=== PATIENT | male | born 1935 | race Caucasian/White ===

== ENCOUNTER 2016-06-22 16:31 | Observation (INO) ==
--- NOTE | 2016-06-22 22:11 | Internal Med History&Physical ---
Date of Encounter: 06/23/16 Time of Encounter: 21:30 Internal Medicine - H&P: HPI Chief complaint: "I do not know why I am here" -he was transferred from [facility] Admitted From: Intrahospital Transfer Plans for Post Hospital Care: Transfer Inp Rehab Fac History of present illness: Mr. 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 The patient is a very poor historian. I gathered from his that he was transfused with 2 unit of blood yesterday at [facility]. She tells me he had required chronic transfusion the past couple of months, his hemoglobin was as low as 3.9 g/dl at some point. The patient reports that he is lethargic and somewhat SOB. he has had chronic pedal edema for which he wears LULU wrappings. He has CKD IIIB-IV under care of Dr Hernandez in [facility]. His pedal edema is partly due to congestive heart failure and chronic venous insufficiency, there is evidence of chronic stasis dermatitis. Last 2D occur was done withhin the past 3 months, LVEF was documented as 60%. The patient also developed redness on the dorsum of left hand, he denies trauma, fever, chills. He reports the hand is pain full A review of his records show that work-up for his pancytopenia in January 2014, during hospitalization for cholecystectomy was unremarkable. It appears that despite the fluctuating course of anemia amd leucopenia, his thromocytopenia has been persistent. He has required transfusion and Neupogen to help anemia and leucopenia. A summary of work-up for pancytopenia is detailed in summary authored by Dr Claire: See below: "Hematinic panel-normal folate level, borderline low B12 level but elevated methylmalonic and is now on oral B-12 supplementation after excluding pernicious anemia. 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 Protein electrophoresis was negative for monoclonal paraprotein. Liver/spleen ultrasound revealed a 13 cm splenomegaly. Liver was unremarkable. Bone marrow biopsy 07/21/14 showed a small population of monoclonal B cells with features typical for a low grade lymphoma. Abdomen CT 11/02/15 to evaluate unexplained right sided back pain complaint was negative for acute abnormality to explain his pain symptoms. New, 1.3cm left lower lobe pulmonary nodule. Malignancy considered less likely. 6 cm right renal cyst. Mild splenomegaly-13cm. Mildly enlarged right external iliac,abdominal, pelvic and inguinal LAD stable Abdomen/pelvis CT 06/05/16 during recent hospitalization was negative for organomegaly or lymphadenopathy to suggest progression of his underlying lymphoproliferative disorder. Pancytopenia was previously attributed to previous bendamustine therapy. "EGD colonoscopy 05/28/16 was unremarkable for active bleeding source. Capsule enteroscopy 06/12/16 was also unremarkable for active bleeding source" Dr Claire recommends daily Neupogen for profound neutropenia. 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 Completed 3 cycles of Rituxan plus bendamustine from 10/30-01/03/16. Treatment was stopped due to significant treatment-related fatigue and prolonged cytopenia despite significant dose adjustments. He started Rituxan maintenance every 2 months 2 years on 04/17/16. 2. 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 We had to dose reduce IVIG and administered every 2 months to accommodate underlying significant kidney dysfunction. 3. 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 I will confirm code status with his and [facility]. Medical history: arthritis, atrial fibrillation, cancer, cardiomyopathy, CHF, coronary artery disease, diabetes, GERD, hyperlipidemia, hypertension, malignancy, osteoporosis, peripheral artery disease, CKDIIIB-IV, bilateral hydrocoele, peripheral neuropathy, gout, DM2, no-melanotic skin cancer, carotid artery stenosis Psychiatric history: no psych history Surgical History: arthroscopy, cancer surgery, right cataract removal, cholecystectomy, coronary bypass (CABG X 4), left and right knee replacement, left shouldr arthroscopy, rotator cuff repiar, excision of non-melanotic skin cancer Smoking Status: Unknown if ever smoked Smokeless Tobacco Status: No Alcohol use: none Drug use: none Family History:mother-DM2, CHF VS: 98.2F, 80, 102/85, 93% on 2L/min by nasal cannula O/E: Not in distress, pale+, anicteric, afebrile,acyanotic, HEENT: Trachea is central, no cervical or jugular lymphadenopathy Chest: CTAB. 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 Psychaitry: Mood is good, affect is congruent, speech is normal, thought process is logical and goal-directed. Extremities: Wrapped in LULU, I did not unwrap to directly observe it SKIN: Erythema of the dorsum of the left hand, no differential warmth, no fluctuancy, no skin breach over lesion, no cubital or axillary lymphadenopathy on the left. LABS 06/21/16 Range/Units 05:20 WBC 2.4 L (4.3-11.1) K/mcL Hgb 6.9 L (12.9-16.9) g/dL Hct 20.9 L (37.5-50.1) % Plt Count 12 L* (140-400) K/mcL Neutrophils # 0.5 L (1.6-8.9) K/mcL BUN=82, SCr=4.2, serum magnesium=2.2, phosphorus=4.6. Chest X-Ray 06/21/16 06:00 Chronic right pleural effusion and/or pleural thickening, No infiltrates. IMP Acute renal failure on CKD, related to diuretics and ACEI Intravascular volume depletion despite extravascular volume expansion. related to diuretics. There is no pulmonary vascular congestion and right pleural effusion even appears loculated. His pedal edema is partly due to chronic venous insufficiency, use of Amlodipine. Chronic pancytopenia with transfusion and Nuepogen-dependent. 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 Hold Lisinopril and Furosemide Discontinue Amlodipine as it may be worsening his pedal edema Trend CBC, transfuse as required Consult nephrology and palliative care Continue other essential medications of chronic morbidities Low dose insulin slding scale QAC/HS Chemical anticoagulation contraindicated giving probable GI losses, anemia and thrombocytopenia Patient is the ideal candidate for palliative considering multiple organ insults. I discussed my assessment with the patient, he verbalized understanding and is agreeable to admission. Past Med Surg Social Fam HX - Past Medical History Medical history: arthritis, atrial fibrillation, cancer, cardiomyopathy, CHF, coronary artery disease, diabetes, GERD, hyperlipidemia, hypertension, malignancy, osteoporosis, peripheral artery disease, renal disease, other Psychiatric history: no psych history - Past Surgical History Surgical History: arthroscopy, cancer surgery, cataract, cholecystectomy, coronary bypass (CABG), knee replacement, orthopedic, other, other - Social History Smoking Status: Unknown if ever smoked Smokeless Tobacco Status: No Alcohol use: none Drug use: none Internal Medicine - H&P: Meds Amlodipine Besylate [Norvasc] 10 mg PO DAILY 01/13/15 [History] Aspirin 81 mg PO DAILY 01/13/15 [History] Atenolol [Tenormin] 50 mg PO BID 01/13/15 [History] Cholecalciferol (D-3) 2,000 units PO DAILY 01/13/15 [History] Febuxostat [Uloric] 80 mg PO DAILY 01/13/15 [History] GlipiZIDE [Glucotrol] 5 mg PO BID 01/13/15 [History] Lisinopril [Zestril] 20 mg PO DAILY 01/13/15 [History] Loratadine [Alavert] 10 mg PO DAILY 01/13/15 [History] Multivitamin [Multivitamins] 1 cap PO DAILY 01/13/15 [History] [place]-3 Fatty Acids [Fish Oil] 1,200 mg PO DAILY 01/13/15 [History] Rosuvastatin Calcium [Crestor] 10 mg PO DAILY 01/13/15 [History] Furosemide [Lasix] 20 mg PO DAILY #30 tablet 04/18/16 [Rx] Aminocaproic Acid [Amicar] 1,000 mg PO Q6H #120 tablet 06/15/16 [Rx] Levofloxacin 750 mg PO Q48H #7 tablet 06/15/16 [Rx] Omeprazole [PriLOSEC] 40 mg PO DAILY #30 cap 06/15/16 [Rx] Diclofenac Sodium [Voltaren] 1 appl TP QID PRN 06/22/16 [History] Allergies No Known Allergies Allergy (Verified 01/20/15 10:11) All Systems PM: A 10-system review of systems was performed and is negative for pertinent findings except as documented above in the HPI. Internal Med - H&P Results - Labs CBC & Chem 7: 06/23/16 05:45 06/23/16 05:45
[2016-06-22] MEDS ORDERED: Acetaminophen 325 MG TABLET PO PRN (22:13)
[2016-06-22] MEDS ORDERED: Naloxone 0.4 MG/ML INJ IVP PRN (22:13)
[2016-06-22] MEDS ORDERED: 0.9 % Sodium Chloride 1,000 ML IVC SCH (22:15)
[2016-06-22 23:27] LABS: Bilirubin,Urine Small (Negative); Blood,Urine Negative (Negative); Clarity,Urine Clear (Clear); Color,Urine Yellow (Yellow); Glucose,Urine (UA) Normal (Normal); Ketones,Urine Negative (Negative); Leukocyte Esterase,Urine Negative (Negative); Nitrite,Urine Negative (Negative); Protein,Urine Trace mg/dL (Neg-Trace); Urobilinogen,Urine Normal (Normal)
[2016-06-22 23:30] LABS: Bacteria,Urine None Seen per hpf (None-Few); Hyaline Casts,Urine Few per lpf (None-Few); RBC,Urine 0-3 per hpf (0-3); Squamous Epithelial Cell,Urine Many per lpf (None-Few); WBC,Urine 0-3 per hpf (0-3)
[2016-06-22 23:35] LABS: Magnesium 2.2 mg/dL (1.6-2.6); Phosphorous 4.6 mg/dL (2.3-4.7)
[2016-06-23] MEDS ORDERED: D5% in Water 1,000 ML IV PRN (04:37)
[2016-06-23] MEDS ORDERED: Dextrose Gel 15 GM PO PRN ×2 (04:37)
[2016-06-23] MEDS ORDERED: *HR* Dextrose 50 % in Water (Syg) 50 ML SYRINGE IVP PRN (04:37)
[2016-06-23] MEDS: 0.9 % Sodium Chloride 1,000 ML IVC SCH (06:12)
[2016-06-23 06:13] LABS: Red Cell Distribution Width 15.9 % (11.5-14.5)
[2016-06-23 06:14] LABS: Eosinophils % 0.5 %; Hematocrit 22.3 % (37.5-50.1); Hemoglobin 7.4 g/dL (12.9-16.9); Immature Granulocytes % 3.6 % (0-4); Lymphocytes # 0.4 K/mcL (0.6-4.6); Lymphocytes % 21.9 %; Mean Corpuscular HGB Conc 33.2 g/dL (31.6-35.5); Mean Corpuscular Hemoglobin 30.1 pg (28.0-33.3); Mean Corpuscular Volume 90.7 fL (83.0-100.0); Mean Platelet Volume 12.8 fL (9.4-12.4); Monocytes # 1.1 K/mcL (0.0-1.3); Monocytes % 59.4 %; Neutrophils # 0.3 K/mcL (1.6-8.9); Red Blood Count 2.46 M/mcL (4.19-5.50); Segmented Neutrophils % 14.6 %
[2016-06-23 06:20] LABS: Platelet Count 18 K/mcL (140-400)
[2016-06-23 06:21] LABS: Potassium 3.9 mEq/L (3.5-4.5)
[2016-06-23 06:22] LABS: Calcium 8.3 mg/dL (8.6-10.8)
[2016-06-23 06:44] LABS: Platelet Estimate Marked Decrease (Normal); Reactive Lymphocytes Present (Not Present)
[2016-06-23] MEDS: *HR* GlipiZIDE 5 MG TABLET PO SCH ×2 (08:47→18:07)
[2016-06-23] MEDS: Insulin LISPRO 300 UNITS/3 ML VIAL SQ SCH ×4 (08:48→20:58)
[2016-06-23] MEDS: Cholecalciferol (D-3) 1,000 UNIT TABLET PO SCH (08:51)
[2016-06-23] MEDS: Multivit/Ca/Min/Fe/FA 1 TAB TABLET PO SCH (08:52)
[2016-06-23] MEDS: Loratadine 10 MG TABLET PO SCH (08:52)
[2016-06-23] MEDS: Febuxostat [Uloric] 80 MG PO SCH (08:57)
[2016-06-23] MEDS ORDERED: Aspirin 81 MG TAB.CHEW PO SCH (09:00)
--- NOTE | 2016-06-23 11:08 | Nephrology Consult Note ---
Date of Encounter: 06/23/16 Time of Encounter: 10:00 Assessment and Plan (1) Acute renal failure superimposed on stage 3 chronic kidney disease Current Visit: Yes Status: Acute Non-oliguric JOSE on CKD stage IIIb. Hx of CKD stage IV (but with chemo and weight loss, his eGFR trended better over the last several months). Suspect multifactorial JOSE but largely pre-renal insult and hemodynamic by his severe anemia and diminished oral intake. Though he has chronic edema, he very likely has a reduced EABV with associated hypoalbuminemia. Continue gentle volume expansion. 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 Will assess daily. Follow a renal protective strategy: dose renally cleared Rx by GFR, avoid NSAIDs , Bactrim, Contrast and other nephrotoxins. Adequate water hydration but no more than 2L per day given his chronic edema. Low sodium and increased protein diet. Recommend Nepro shakes (low in phos, which is better in advanced stages of CKD). Thank you for consulting the [facility] group. Will follow with you. (2) Anasarca associated with disorder of kidney Current Visit: No Status: Acute The pt says that he chronically is edematous. I compared his recorded wt in Kgs dating back to Apr, in which he weighed about 10kg more. So the edema I see today may be more chronic in nature. (3) Gout Current Visit: No Status: Chronic Will trend uric acid, CK, Phos. Avoid NSAIDs, but if he were to develop an acute flare then prednisone would be least impacting on his renal function . 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 (5) Cellulitis of left hand Current Visit: Yes Status: Acute As per primary History of Present Illness - Reason for Consult Consult date: 06/23/16 Acute Kidney Injury, Chronic Kidney Disease Requesting physician: Jad Zaragoza - Chief Complaint JOSE on CKD - History of Present Illness Victoriano Calderon is a very pleasant gentleman with a pmh of CKD (previously stage IV , but trending toward stage III of late), lymphoma s/p chemo, chronic edema and et al who presented as a transfer from a regional rehab unit d/t JOSE on CKD. 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 No FHx of ESRD or renal transplant. He denies using NSAIDs and he does not think that he received Indomethacin for his gout over the last few weeks when he last had a flare. He affirmed having diminished appetite and reduced oral intake of liquids and solids. He did not affirm CP, dyspnea, flank pain, renal stones, dysuria, gross hematuria or renal stones in the past. Past Med Surg Social Fam HX - Past Medical History Medical history: arthritis, atrial fibrillation, cancer, cardiomyopathy, CHF, coronary artery disease, diabetes, GERD, hyperlipidemia, hypertension, malignancy, osteoporosis, peripheral artery disease, renal disease, other Psychiatric history: no psych history - Past Surgical History Surgical History: arthroscopy, cancer surgery, cataract, cholecystectomy, coronary bypass (CABG), knee replacement, orthopedic, other, other - Social History Smoking Status: Unknown if ever smoked Smokeless Tobacco Status: No Alcohol use: none Drug use: none Medications and Allergies Amlodipine Besylate [Norvasc] 10 mg PO DAILY 01/13/15 [History] Aspirin 81 mg PO DAILY 01/13/15 [History] Atenolol [Tenormin] 50 mg PO BID 01/13/15 [History] Cholecalciferol (D-3) 2,000 units PO DAILY 01/13/15 [History] Febuxostat [Uloric] 80 mg PO DAILY 01/13/15 [History] GlipiZIDE [Glucotrol] 5 mg PO BID 01/13/15 [History] Lisinopril [Zestril] 20 mg PO DAILY 01/13/15 [History] Loratadine [Alavert] 10 mg PO DAILY 01/13/15 [History] Multivitamin [Multivitamins] 1 cap PO DAILY 01/13/15 [History] [place]-3 Fatty Acids [Fish Oil] 1,200 mg PO DAILY 01/13/15 [History] Rosuvastatin Calcium [Crestor] 10 mg PO DAILY 01/13/15 [History] Furosemide [Lasix] 20 mg PO DAILY #30 tablet 04/18/16 [Rx] Aminocaproic Acid [Amicar] 1,000 mg PO Q6H #120 tablet 06/15/16 [Rx] Levofloxacin 750 mg PO Q48H #7 tablet 06/15/16 [Rx] Omeprazole [PriLOSEC] 40 mg PO DAILY #30 cap 06/15/16 [Rx] Diclofenac Sodium [Voltaren] 1 appl TP QID PRN 06/22/16 [History] Allergies No Known Allergies Allergy (Verified 01/20/15 10:11) Review of Systems All Systems: reviewed and no additional remarkable complaints except as stated Exam - Vital Signs Vital signs: Initial Vital Signs Temp Pulse Resp BP Pulse Ox 97.6 F 92 20 109/63 94 L 06/22/16 20:00 06/22/16 20:00 06/22/16 20:00 06/22/16 20:00 06/22/16 20:00 Vital Signs - Last 8 Hours Temp Pulse Resp BP Pulse Ox 06/23/16 08:00 97 06/23/16 07:17 99.3 F 94 18 102/73 97 06/23/16 04:13 96 18 114/70 97 Intake and Output 06/22/16 06/23/16 06/23/16 23:59 07:59 15:59 Intake Total 0 / 0 100 / 100 Output Total 175 / 175 200 / 200 Balance -175 / -175 -100 / -100 Intake: Oral 0 / 0 100 / 100 Output: Urine 175 / 175 200 / 200 Other: # Voids 0 0 Weight 109.2 kg Blood Glucose* 94 104 - General Appearance General appearance: well-developed, obese, chronically ill, frail EENT: ATNC, mucous membranes moist Neck: supple Respiratory: clear Cardiology: edema (1-2+ pretibial pitting edema), irregular rhythm, normal S1, normal S2 Gastrointestinal: normoactive bowel sounds, no tenderness, no guarding, obese Integumentary: warm and dry, chronic venous stasis Neurologic: no focal deficit, no asterixis, alert and oriented x3 Musculoskeletal: no deformities, no cyanosis Psychiatric: depressed, cooperative Results - Lab Results 06/24/16 04:03 06/24/16 04:03 Most recent lab results Calcium 8.3 mg/dL (8.6-10.8) L 06/23/16 05:45 Phosphorus 4.6 mg/dL (2.3-4.7) 06/22/16 22:50 Magnesium 2.2 mg/dL (1.6-2.6) 06/22/16 22:50 I reviewed the labs from both 06/23/16 and 06/24/16, imaging, meds, I/Os and vitals. I reviewed his prior hospitalization medical records: previously saw my colleague Dr. Mims in Apr with fluid overload and JOSE on CKD -- did not need HD at that time. Consult Discharge Plan - Plan Referrals: NO,PCP [Primary Care Provider] -
--- NOTE | 2016-06-23 11:14 | Internal Med Progress Note ---
<Samy Lara Eligio - Last Filed: 06/23/16 12:45> Date of Encounter: 06/23/16 Time of Encounter: 11:05 - Assessment and plan (1) Antineoplastic chemotherapy induced pancytopenia Current Visit: No Status: Chronic Assessment and plan: Pt. with hx of Marginal Zone Lymphoma Pancytopenia likely multifactorial from marginal zone lymphoma, recent chemotherapy, CKD. ANC: 300 Hgb: 7.4, low Hgb 3.9 on May. Plt: 18 WBC: 1.9 Has received multiple PRBC transfusions and Platelet transfusions. Currently mild temp of 99.3 EGD colonoscopy 05/28/16 was unremarkable for active bleeding source. Push enteroscopy 06/12/16 was also unremarkable for active bleeding source. 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 Will hydrate gently as he also has diastolic CFH (3) CHF NYHA class III (symptoms with mildly strenuous activities) Current Visit: No Status: Acute Assessment and plan: Last echo: 05/08/16 LVEF 60-65%, mild concentric left ventricular hypertrophy, indeterminate diastolic dysfunction due to Afib, severely dilated left atrium, moderately dilated right atrium, mild aortic regurg, mild pulm regurg, mild pulm htn, no wall motion abnormalities. Lungs have crackles in b/l bases B/L LE edema Qualifiers: Congestive heart failure type: diastolic Congestive heart failure chronicity: acute on chronic Qualified Code(s): I50.33 - Acute on chronic diastolic (congestive) heart failure (4) Atrial fibrillation Current Visit: No Status: Chronic Assessment and plan: Hx of Afib On Tenormin 50mg BID at home Rate controlled CHADSVASC score of 5 (Age, HTN, CHF, CAD). He is high stroke risk, however, he is pancytopenic--HGB 8.8, platelets 55. Unable to be safely anticoagulated. Pt is aware he is at increased stroke risk. Check echo to evaluate structure and function. Qualifiers: Atrial fibrillation type: paroxysmal Qualified Code(s): I48.0 - Paroxysmal atrial fibrillation (5) Cellulitis of left hand Current Visit: Yes Status: Acute Assessment and plan: Left hand/wrist swelling/erythema/tenderness UE Venous duplex on 06/20/16 revealed normal left upper extremity deep and superficial venous exam with normal contralateral vein. Will tho hand and start antibiotic - Subjective Interval history: Patient seen and examined. Hx of MALT with persistent pancytopenia transferred from [place] for worsening of renal function. Has new left hand erythema/ swelling/tenderness. Not eating much, but was able to have some ensure and a small amount of food today. Feeling less fatigues today. Denies cp/sob/n/v/d. - Constitutional Vitals: Temp Pulse Resp BP Pulse Ox 99.3 F 94 18 102/73 97 06/23/16 07:17 06/23/16 07:17 06/23/16 07:17 06/23/16 07:17 06/23/16 08:00 General appearance: Present: A&O X 3 - Head Head exam: Present: atraumatic, normocephalic - Eye Eye exam: Present: PERRL, conjuntiva pink, sclera anicteric Pupils: Present: PERRL - Neck Neck exam general surgery: Present: supple, trachea midline. Absent: lymphadenopathy - Respiratory Respiratory exam: Present: rales. Absent: accessory muscle use, CTAB, respiratory distress, rhonchi, wheezes - Cardiovascular Cardiovascular exam: Present: RRR, +S1, +S2. Absent: diastolic murmur, gallop, rubs, systolic murmur - GI/Abdominal GI/Abdominal exam: Present: normal bowel sounds, soft, no peritoneal signs. Absent: distended, tenderness - Extremities Exam Extremities exam: Present: pedal edema, tenderness, warm, radial pulses palpable and symetrical. Absent: calf tenderness, cyanotic - Neurological Exam Neurological exam: Present: CN II-XII intact, oriented X3, no focal deficits. Absent: facial droop, speech deficit - Skin Skin exam: Present: dry, intact Internal Medicine: Result - Labs CBC & Chem 7: 06/23/16 05:45 06/23/16 05:45 Labs: Short CBC 06/23/16 Range/Units 05:45 WBC 1.9 L (4.3-11.1) K/mcL Hgb 7.4 L (12.9-16.9) g/dL Hct 22.3 L (37.5-50.1) % Plt Count 18 L* (140-400) K/mcL Neutrophils # 0.3 L (1.6-8.9) K/mcL [facility] 06/23/16 05:45 Sodium 142 Potassium 3.9 Chloride 107 Carbon Dioxide 22 BUN 90 H Creatinine 3.80 H Glucose 97 Calcium 8.3 L Urine 06/22/16 Range/Units 23:00 Urine Color Yellow (Yellow) Urine Clarity Clear (Clear) Urine pH 5.0 (5.0-8.0) pH Units Ur Specific [place] 1.020 (1.010-1.025) Urine Protein Trace (Neg-Trace) mg/dL Urine Glucose (UA) Normal (Normal) mg/dL - VTE Reasons for not Prescribing Prophylaxis: Medical contraindication Consult Discharge Plan - Plan Referrals: NO,PCP [Primary Care Provider] - <Jad Zaraogza P - Last Filed: 06/23/16 16:58> Date of Encounter: 06/23/16 - Constitutional Vitals: Temp Pulse Resp BP Pulse Ox 98.2 F 76 16 104/54 93 L 06/23/16 16:34 06/23/16 16:34 06/23/16 16:34 06/23/16 16:34 06/23/16 16:34 Internal Medicine: Result - Labs CBC & Chem 7: 06/23/16 05:45 06/23/16 05:45 Labs: Short CBC 06/23/16 Range/Units 05:45 WBC 1.9 L (4.3-11.1) K/mcL Hgb 7.4 L (12.9-16.9) g/dL Hct 22.3 L (37.5-50.1) % Plt Count 18 L* (140-400) K/mcL Neutrophils # 0.3 L (1.6-8.9) K/[facility] 06/23/16 05:45 Sodium 142 Potassium 3.9 Chloride 107 Carbon Dioxide 22 BUN 90 H Creatinine 3.80 H Glucose 97 Calcium 8.3 L Urine 06/22/16 Range/Units 23:00 Urine Color Yellow (Yellow) Urine Clarity Clear (Clear) Urine pH 5.0 (5.0-8.0) pH Units Ur Specific [place] 1.020 (1.010-1.025) Urine Protein Trace (Neg-Trace) mg/dL Urine Glucose (UA) Normal (Normal) mg/dL - Attending Attestation I examined this patient and my medical decision-making was reviewed with the HIGHWAY CONSTRUCTION INSPECTOR/PA/Advanced Practice Nurse/Resident Physician. I agree with the documented findings, disposition and treatment plan as described except to the extent set forth below.
--- NOTE | 2016-06-23 16:25 | Palliative - Consult Note ---
Date of Encounter: 06/24/16 Time of Encounter: 16:22 - Assessment and Plan (1) Goals of care, counseling/discussion Current Visit: Yes Status: Acute Assessment and plan: Plan for family meeting with patient and his spouse when she is able (goal in the next 1-2 days). Discussed case with hospitalist. Code status established prior to consult. (2) Cellulitis of left hand Current Visit: Yes Status: Acute Assessment and plan: Erythematous area marked. on ATB therapy. Treatment per hospitalist. 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 Palliative-CN HPI - Data of Consult Patient: new to practice Consult date: 06/23/16 Requesting Physician: Jad Zaragoza MD Primary Care Provider: PCP NO - Consult Narrative Palliative Care/Comfort Measures: Palliative care Reason for consult: Goals of care History of present illness: Mr. Calderon is a 80 year old male transferred to [facility] from [place] for anemia. Mr. Calderon has been in and out of acute care settings since May 2016. 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 He has been evaluated in the hospital setting several times for his anemia. Endoscopic evaluation was unable to determine a source of bleeding. He was unable to complete a capsule endoscopy as this had to be completed as an outpatient. Mr. Calderon has had several blood transfusions over the past 2-3 weeks for his anemia. He was transferred to [facility] for further workup and review. He was also found to have an erythematous region on the dorsal aspect of the right hand. His spouse, Arik, reports a progressive decline over the past 2 years. Mr. Calderon becomes periodically confused, but she has been able to manage his care in the home setting. He does not have home health nurses at this time. Mr. Calderon has chronic lower extremity edema and stasis dermatitis. His appetite has dwindled, and he now drinks ensures. The patient denies pain, nausea, vomiting. His spouse reports poor functional capacity and exercise tolerance, along with frequent napping. The palliative care team was consulted to assist with goals of care planning in this chronically ill patient. CC: Jad Zaragoza MD Past Med Surg Social Fam HX - Past Medical History Source: patient, old records reviewed, obtained from family Medical history: arthritis, atrial fibrillation, cancer, cardiomyopathy, CHF, coronary artery disease, diabetes, GERD, hyperlipidemia, hypertension, malignancy, osteoporosis, peripheral artery disease, renal disease, other Psychiatric history: no psych history - Past Surgical History Surgical History: arthroscopy, cancer surgery, cataract, cholecystectomy, coronary bypass (CABG), knee replacement, orthopedic, other, other - Social History Smoking Status: Unknown if ever smoked Smokeless Tobacco Status: No Alcohol use: none Drug use: none Medications and Allergies Amlodipine Besylate [Norvasc] 10 mg PO DAILY 01/13/15 [History] Aspirin 81 mg PO DAILY 01/13/15 [History] Atenolol [Tenormin] 50 mg PO BID 01/13/15 [History] Cholecalciferol (D-3) 2,000 units PO DAILY 01/13/15 [History] Febuxostat [Uloric] 80 mg PO DAILY 01/13/15 [History] GlipiZIDE [Glucotrol] 5 mg PO BID 01/13/15 [History] Lisinopril [Zestril] 20 mg PO DAILY 01/13/15 [History] Loratadine [Alavert] 10 mg PO DAILY 01/13/15 [History] Multivitamin [Multivitamins] 1 cap PO DAILY 01/13/15 [History] [place]-3 Fatty Acids [Fish Oil] 1,200 mg PO DAILY 01/13/15 [History] Rosuvastatin Calcium [Crestor] 10 mg PO DAILY 01/13/15 [History] Furosemide [Lasix] 20 mg PO DAILY #30 tablet 04/18/16 [Rx] Aminocaproic Acid [Amicar] 1,000 mg PO Q6H #120 tablet 06/15/16 [Rx] Levofloxacin 750 mg PO Q48H #7 tablet 06/15/16 [Rx] Omeprazole [PriLOSEC] 40 mg PO DAILY #30 cap 06/15/16 [Rx] Diclofenac Sodium [Voltaren] 1 appl TP QID PRN 06/22/16 [History] Allergies No Known Allergies Allergy (Verified 01/20/15 10:11) - Constitutional Constitutional ROS PAL: decreased appetite - EENT Ears, nose, mouth, throat: no dysphagia, no mouth pain - Cardiovascular Cardiovascular ROS: edema, leg edema (chronic), no chest pain, no chest pain at rest, no irregular heart rhythm - Respiratory Respiratory: no cough, no dyspnea - Gastrointestinal Gastrointestinal: no constipation, no diarrhea, no nausea, no vomiting - Genitourinary Genitourinary ROS male: no difficulty urinating - Musculoskeletal Musculoskeletal ROS IM: muscle weakness - Integumentary ROS Integumentary: erythema (to the left hand) - Neurological Neurological ROS: confusion Palliative Care-Exam - Constitutional Vitals: Temp Pulse Resp BP Pulse Ox 98.2 F 85 16 99/63 95 06/23/16 11:55 06/23/16 11:55 06/23/16 11:55 06/23/16 11:55 06/23/16 11:55 General appearance: Present: no acute distress, obese Exam: 80-year-old male patient, sitting up in chair, alert to person and place. - Head Head Exam: Present: atraumatic - Eye Eye exam: Present: EOMI Pupils: Present: PERRL - ENT ENT exam: Present: mucous membranes dry - Expanded ENT Exam Teeth exam: Absent: edentulous - Respiratory Respiratory exam: Present: decreased breath sounds. Absent: accessory muscle use, respiratory distress - Cardiovascular Cardiovascular exam: Present: RRR - GI/Abdominal Exam GI/Abdominal exam: Absent: tenderness - Rectal Rectal Exam: Present: deferred - Catheter Type: Urethral (Mcdonough) - Extremities Exam Extremities exam: Present: pedal edema - Expanded Upper Extremities Exam Hand wrist exam: Present: erythema Hand L/R back image: 1 - Erythematous region - Expanded Lower Extremities Exam Lower Leg exam: Present: swelling - Neurological Exam Neurological exam: Present: alert (Oriented to person and place, able to follow commands, participates in conversation but with noticeable memory deficits), strengths equal and symetr throughout - Psychiatric Psychiatric exam: Absent: agitated, anxious - Skin Skin exam: Present: dry, warm Additional comments: Dressing intact to lower extremities Internal Medicine - CN: Reslt - Labs CBC & Chem 7: 06/24/16 04:03 06/24/16 04:03 Labs: Short CBC 06/23/16 Range/Units 05:45 WBC 1.9 L (4.3-11.1) K/mcL Hgb 7.4 L (12.9-16.9) g/dL Hct 22.3 L (37.5-50.1) % Plt Count 18 L* (140-400) K/mcL Neutrophils # 0.3 L (1.6-8.9) K/mcL BMP 06/23/16 05:45 Sodium 142 Potassium 3.9 Chloride 107 Carbon Dioxide 22 BUN 90 H Creatinine 3.80 H Glucose 97 Calcium 8.3 L Urine 06/22/16 Range/Units 23:00 Urine Color Yellow (Yellow) Urine Clarity Clear (Clear) Urine pH 5.0 (5.0-8.0) pH Units Ur Specific [place] 1.020 (1.010-1.025) Urine Protein Trace (Neg-Trace) mg/dL Urine Glucose (UA) Normal (Normal) mg/dL Consult Discharge Plan - Plan Referrals: NO,PCP [Primary Care Provider] - Palliative Quality Palliative Quality: Screen for Code Status: Yes, Screen for Goals of Care: Yes, Screen for Pain: Yes, If Pain Regimen Started, Initiate Bowel Regimen: NA, Screen for Nausea/Vomitting: Yes Code Status: 06/22/16 22:13 Resuscitation Status: Active [RES] Routine Comment: Resuscitation Status: [id number]
[2016-06-23] MEDS: Ampicillin/Sulbactam 1,500 MG in 0.9 % Sodium Chloride Mini Bag 100 ML IVPB SCH (18:08)
[2016-06-24] MEDS: 0.9 % Sodium Chloride 1,000 ML IVC SCH (03:45)
[2016-06-24 04:33] LABS: Hematocrit 21.5 % (37.5-50.1); Hemoglobin 6.9 g/dL (12.9-16.9); Mean Corpuscular HGB Conc 32.1 g/dL (31.6-35.5); Mean Corpuscular Hemoglobin 29.1 pg (28.0-33.3); Mean Corpuscular Volume 90.7 fL (83.0-100.0); Mean Platelet Volume 13.3 fL (9.4-12.4); Neutrophils # 0.3 K/mcL (1.6-8.9); Red Blood Count 2.37 M/mcL (4.19-5.50); Red Cell Distribution Width 15.9 % (11.5-14.5)
[2016-06-24 04:39] LABS: Platelet Count 14 K/mcL (140-400)
[2016-06-24 04:46] LABS: Calcium 8.2 mg/dL (8.6-10.8); Potassium 3.9 mEq/L (3.5-4.5)
[2016-06-24 05:07] LABS: Monocytes # 0.2 K/mcL (0.0-1.3)
[2016-06-24 05:08] LABS: Platelet Estimate Marked Decrease (Normal); Reactive Lymphocytes Present (Not Present)
[2016-06-24] MEDS: Ampicillin/Sulbactam 1,500 MG in 0.9 % Sodium Chloride Mini Bag 100 ML IVPB SCH ×2 (05:41→20:19)
[2016-06-24] MEDS: Insulin LISPRO 300 UNITS/3 ML VIAL SQ SCH ×4 (09:04→21:36)
[2016-06-24] MEDS: *HR* GlipiZIDE 5 MG TABLET PO SCH ×2 (09:04→16:44)
[2016-06-24] MEDS: Loratadine 10 MG TABLET PO SCH (09:04)
[2016-06-24] MEDS: Cholecalciferol (D-3) 1,000 UNIT TABLET PO SCH (09:04)
[2016-06-24] MEDS: Multivit/Ca/Min/Fe/FA 1 TAB TABLET PO SCH (09:04)
[2016-06-24] MEDS: Febuxostat [Uloric] 80 MG PO SCH (09:05)
--- NOTE | 2016-06-24 10:10 | Nephrology Progress Note ---
Date of Encounter: 06/24/16 Time of Encounter: 12:00 - Assessment and Plan (1) Acute renal failure superimposed on stage 3 chronic kidney disease Current Visit: Yes Status: Acute SCr slowly trending better Chronic edema: should plan to stop IVF to lower the risk of swinging the pendulum from a pre-renal JOSE to fluid overload Avoid nephrotoxins: dose Rx by GFR, salt restriction but protein shake added diet, avoid nephrotoxins. No urgent need for PREVENTION RN. Continue to follow a renal conservative/protective strategy. Thank you. 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 He did not affirm uremic complaints. I reviewed his labs, meds and vitals with him and his , who was at bedside. Objective - Vital Signs Vital signs: Vital Signs Temp Pulse Resp BP Pulse Ox 06/24/16 09:00 98 06/24/16 07:55 97.8 F 98 16 117/66 98 06/24/16 05:00 97.9 F 97 18 95/55 94 L 06/24/16 00:00 97.9 F 84 18 108/56 99 06/23/16 21:00 100 06/23/16 16:34 98.2 F 76 16 104/54 93 L 06/23/16 11:55 98.2 F 85 16 99/63 95 Intake and Output 06/23/16 06/24/16 06/24/16 23:59 07:59 15:59 Intake Total 1100 / 1100 100 / 100 240 / 240 Output Total 250 / 250 Balance 1100 / 1100 -150 / -150 240 / 240 Intake: IV Fluids 1100 / 1100 0.9 % Sodium Chloride 1, 1000 / 1000 000 ML @ 75 mls/hr IVC . [id number] [facility] Rx#: [id number] Unasyn 1,500 mg In 0.9 % 100 / 100 Sodium Chloride (Mini-Bag +) 100 ML @ 200 mls/hr IVPB Q12H [facility] Rx#: [id number] Oral 100 / 100 240 / 240 Output: Urine 250 / 250 Other: Meal Dinner Breakfast Percent of Meal Consumed 10% 90% Stool Size Copious Stool Consistency formed Stool Color Brown # Voids 0 1 # Bowel Movements 1 Blood Glucose* 232 86 - General Appearance Exam: General appearance: well-developed, obese, chronically ill, frail EENT: ATNC, mucous membranes moist Neck: supple Respiratory: clear Cardiology: edema (1-2+ pretibial pitting edema), irregular rhythm, normal S1, normal S2 Gastrointestinal: normoactive bowel sounds, no tenderness, no guarding, obese Integumentary: warm and dry, chronic venous stasis Neurologic: no focal deficit, no asterixis, alert and oriented x3 Musculoskeletal: no deformities, no cyanosis Psychiatric: depressed, cooperative - Lab 06/25/16 05:45 06/25/16 05:45 Most recent lab results Calcium 8.2 mg/dL (8.6-10.8) L 06/24/16 04:03 Phosphorus 4.6 mg/dL (2.3-4.7) 06/22/16 22:50 Magnesium 2.2 mg/dL (1.6-2.6) 06/22/16 22:50 - VTE Reasons for not Prescribing Prophylaxis: Medical contraindication Consult Discharge Plan - Plan Referrals: NO,PCP [Primary Care Provider] -
--- NOTE | 2016-06-24 10:37 | Internal Med Progress Note ---
<Samy Lara - Last Filed: 06/24/16 11:33> Date of Encounter: 06/24/16 Time of Encounter: 10:35 - Assessment and plan (1) Antineoplastic chemotherapy induced pancytopenia Current Visit: No Status: Chronic Assessment and plan: Pt. with hx of Marginal Zone Lymphoma Pancytopenia likely multifactorial from marginal zone lymphoma, recent chemotherapy, CKD. EGD colonoscopy 05/28/16 was unremarkable for active bleeding source. Push enteroscopy 06/12/16 was also unremarkable for active bleeding source. 06/23/16 ANC: 300 Hgb: 7.4, low Hgb 3.9 on May. Plt: 18 WBC: 1.9 06/24/16 ANC: 300 Hgb: 6.9 Plt: 14 WBC: 1.[address] Falcon. Recommended transfuse 2 units PRBC, 1 units Platelets, and order bone marrow. Per Oncology will transfuse 2 units PRBC and 1 unit platelets Will hold Neupogen for now continue Amicar Transfusion support for thrombocytopenia Transfusion support for Hgb <7 Peripheral blood smear from 06/14/16 revealed: 34% circulating blasts, decreased erythrocytes, normocytic anemia, absolute neutropenia, decreased platelets w/ rare enlarged hypogranular and/or pelgeroid forms. Flow cytometry: myeloid blasts 40% of leukocytes and express CD4(partial/dim), CD7(patial/dim), CD11b, CD13, CD33, CD34, CD117. Lymphocytes consist entirely of T cells which show inverted CD4:CD8 ratio (0.73). B cells virtually absent. 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 Dyspoietic features in some erythrocytes, neutrophils, and platelets raise the possibility of myelodysplasia related changes. Correlation with bone marrow recommended. (2) Acute renal failure superimposed on stage 3 chronic kidney disease Current Visit: Yes Status: Acute Assessment and plan: Baseline GFR: 30-40, 15 today Baseline Bowling Ball Grader: 1.5-2.0, Today 3.8 nephrology consulted, appreciate and will follow recs. 06/24/16: SCr trending down to 3.4 today D/C IVF to avoid fluid overload Avoid nephrotoxins. Dose meds by GFR. Salt restrict. Continue to follow a renal conservative/protective strategy. (3) CHF NYHA class III (symptoms with mildly strenuous activities) Current Visit: No Status: Acute Assessment and plan: Last echo: 05/08/16 LVEF 60-65%, mild concentric left ventricular hypertrophy, indeterminate diastolic dysfunction due to Afib, severely dilated left atrium, moderately dilated right atrium, mild aortic regurg, mild pulm regurg, mild pulm htn, no wall motion abnormalities. Lungs have crackles in b/l bases B/L LE edema 06/24/16: crackles improved from yesterday. D/C'd IVF to avoid exacerbation of CHF and fluid overload PO fluids (4) Atrial fibrillation Current Visit: No Status: Chronic Assessment and plan: Hx of Afib On Tenormin 50mg BID at home. Will continue. Rate controlled CHADSVASC score of 5 (Age, HTN, CHF, CAD). He is high stroke risk, however, he is pancytopenic. Unable to be safely anticoagulated. Pt is aware he is at increased stroke risk. (5) Cellulitis of left hand Current Visit: Yes Status: Acute Assessment and plan: Left hand/wrist swelling/erythema/tenderness UE Venous duplex on 06/20/16 revealed normal left upper extremity deep and superficial venous exam with normal contralateral vein. Will tho hand and start antibiotic 06/24/16: Erythema appears to be decreasing continue Unasyn Q6h blood cultures pending - Subjective Interval history: Patient seen and examined. Hx of MALT with persistent pancytopenia transferred from [place] for worsening of renal function. Has new left hand erythema/ swelling/tenderness. Not eating much, but was able to have some ensure and a small amount of food today. Feeling less fatigues today. Denies cp/sob/n/v/d. 06/24/16: Patient seen and examined. No complaints at this time. Urinating well. Nonbloody BM. Eating ok, drinking ensure. Denies cp/sob/n/v/d. - Constitutional Vitals: Temp Pulse Resp BP Pulse Ox 97.8 F 98 16 117/66 98 06/24/16 07:55 06/24/16 07:55 06/24/16 07:55 06/24/16 07:55 06/24/16 09:00 General appearance: Present: A&O X 3 - Head Head exam: Present: atraumatic, normocephalic - Eye Eye exam: Present: PERRL, conjuntiva pink, sclera anicteric Pupils: Present: PERRL - Neck Neck exam general surgery: Present: supple, trachea midline. Absent: lymphadenopathy - Respiratory Respiratory exam: Present: CTAB, rales (RLL). Absent: accessory muscle use, rhonchi, wheezes - Cardiovascular Cardiovascular exam: Present: irregular rhythm, +S1, +S2. Absent: gallop, systolic murmur - GI/Abdominal GI/Abdominal exam: Present: normal bowel sounds, soft, no peritoneal signs. Absent: distended, tenderness - Extremities Exam Extremities exam: Present: pedal edema, tenderness, warm - Neurological Exam Neurological exam: Present: CN II-XII intact, oriented X3, no focal deficits. Absent: facial droop, speech deficit - Skin Skin exam: Present: dry, erythema (left wrist), intact Internal Medicine: Result - Labs CBC & Chem 7: 06/24/16 04:03 06/24/16 04:03 Labs: Short CBC 06/24/16 Range/Units 04:03 WBC 1.7 L (4.3-11.1) K/mcL Hgb 6.9 L (12.9-16.9) g/dL Hct 21.5 L (37.5-50.1) % Plt Count 14 L* (140-400) K/mcL Neutrophils # 0.3 L (1.6-8.9) K/mcL BMP 06/24/16 04:03 Sodium 143 Potassium 3.9 Chloride 110 H Carbon Dioxide 22 BUN 91 H Creatinine 3.31 H Glucose 75 Calcium 8.2 L - VTE Reasons for not Prescribing Prophylaxis: Medical contraindication Consult Discharge Plan - Plan Referrals: NO,PCP [Primary Care Provider] - <Jad Zaragoza - Last Filed: 06/24/16 15:59> Date of Encounter: 06/24/16 - Constitutional Vitals: Temp Pulse Resp BP Pulse Ox 97.4 F L 92 18 107/54 99 06/24/16 14:28 06/24/16 14:28 06/24/16 14:28 06/24/16 14:28 06/24/16 14:28 Internal Medicine: Result - Labs CBC & Chem 7: 06/24/16 04:03 06/24/16 04:03 Labs: Short CBC 06/24/16 Range/Units 04:03 WBC 1.7 L (4.3-11.1) K/mcL Hgb 6.9 L (12.9-16.9) g/dL Hct 21.5 L (37.5-50.1) % Plt Count 14 L* (140-400) K/mcL Neutrophils # 0.3 L (1.6-8.9) K/mcL BMP 06/24/16 04:03 Sodium 143 Potassium 3.9 Chloride 110 H Carbon Dioxide 22 BUN 91 H Creatinine 3.31 H Glucose 75 Calcium 8.2 L - Attending Attestation I examined this patient and my medical decision-making was reviewed with the HAULAGE ENGINE OPERATOR/PA/Advanced Practice Nurse/Resident Physician. I agree with the documented findings, disposition and treatment plan as described except to the extent set forth below.
[2016-06-24] MEDS ORDERED: 0.9 % Sodium Chloride 250 ML ONE (14:03)
[2016-06-24] MEDS ORDERED: 0.9 % Sodium Chloride 1,000 ML ONE ×2 (14:07→16:41)
[2016-06-24 20:17] LABS: Hematocrit 25.4 % (37.5-50.1)
[2016-06-24] MEDS: *HR* HYDROcodone/Acet 10/325 mg TABLET PO PRN (20:18)
[2016-06-24 20:19] LABS: Hemoglobin 8.3 g/dL (12.9-16.9); Immature Granulocytes % 1.2 % (0-4); Immature Platelets 6.9 % (1.1-6.1); Lymphocytes # 0.5 K/mcL (0.6-4.6); Mean Corpuscular HGB Conc 32.7 g/dL (31.6-35.5); Mean Corpuscular Hemoglobin 29.5 pg (28.0-33.3); Mean Corpuscular Volume 90.4 fL (83.0-100.0); Mean Platelet Volume 10.4 fL (9.4-12.4); Monocytes # 1.9 K/mcL (0.0-1.3); Monocytes % 75.7 %; Neutrophils # 0.1 K/mcL (1.6-8.9); Red Blood Count 2.81 M/mcL (4.19-5.50); Red Cell Distribution Width 15.2 % (11.5-14.5); Segmented Neutrophils % 4.1 %
[2016-06-24 20:24] LABS: Platelet Count 27 K/mcL (140-400)
[2016-06-24 20:29] LABS: Albumin 2.9 g/dL (3.5-5.0); Bilirubin,Total 0.6 mg/dL (0.2-1.2); Calcium 8.7 mg/dL (8.6-10.8); Globulin 2.9 g/dL (2.4-3.5); Potassium 4.6 mEq/L (3.5-4.5); Total Protein 5.8 g/dL (6.0-8.3)
[2016-06-24 20:33] LABS: Platelet Estimate Marked Decrease (Normal)
[2016-06-24 20:35] LABS: Reactive Lymphocytes Present (Not Present)
[2016-06-25] MEDS: Ampicillin/Sulbactam 1,500 MG in 0.9 % Sodium Chloride Mini Bag 100 ML IVPB SCH ×2 (05:35→17:11)
[2016-06-25 06:16] LABS: Immature Granulocytes % 0.5 % (0-4); Mean Corpuscular Hemoglobin 29.7 pg (28.0-33.3)
[2016-06-25 06:19] LABS: Hematocrit 23.5 % (37.5-50.1); Hemoglobin 7.6 g/dL (12.9-16.9); Immature Platelets 9.5 % (1.1-6.1); Lymphocytes # 0.4 K/mcL (0.6-4.6); Lymphocytes % 20.4 %; Mean Corpuscular HGB Conc 32.3 g/dL (31.6-35.5); Mean Corpuscular Volume 91.8 fL (83.0-100.0); Mean Platelet Volume 11.1 fL (9.4-12.4); Monocytes # 1.5 K/mcL (0.0-1.3); Monocytes % 74.1 %; Neutrophils # 0.1 K/mcL (1.6-8.9); Red Blood Count 2.56 M/mcL (4.19-5.50); Red Cell Distribution Width 15.9 % (11.5-14.5)
[2016-06-25 06:29] LABS: Bilirubin,Urine Negative (Negative); Blood,Urine Negative (Negative); Clarity,Urine Clear (Clear); Color,Urine Yellow (Yellow); Glucose,Urine (UA) Normal (Normal); Ketones,Urine Negative (Negative); PH,Urine 5.5 pH Units (5.0-8.0); Protein,Urine Trace mg/dL (Neg-Trace); Specific Gravity,Urine 1.022 (1.010-1.025)
[2016-06-25 06:30] LABS: Leukocyte Esterase,Urine Negative (Negative); Nitrite,Urine Negative (Negative); Urobilinogen,Urine Normal (Normal)
[2016-06-25 06:31] LABS: Calcium 8.6 mg/dL (8.6-10.8); Magnesium 2.3 mg/dL (1.6-2.6); Phosphorous 4.3 mg/dL (2.3-4.7); Potassium 4.3 mEq/L (3.5-4.5)
[2016-06-25 06:34] LABS: Bacteria,Urine None Seen per hpf (None-Few); Hyaline Casts,Urine Few per lpf (None-Few); RBC,Urine 0-3 per hpf (0-3); Squamous Epithelial Cell,Urine Few per lpf (None-Few); WBC,Urine 0-3 per hpf (0-3)
[2016-06-25 06:37] LABS: Platelet Count 23 K/mcL (140-400)
[2016-06-25 06:38] LABS: Platelet Estimate Marked Decrease (Normal); Polychromasia 1+ (Not Present); Reactive Lymphocytes Present (Not Present)
--- NOTE | 2016-06-25 08:43 | ECHO - Doppler Report ---
Echocardiogram Name: Victoriano Calderon Date of Study: 06/23/2016 Date: 1935 Ht: 72.0 in Medical Record#: [id number] Age: 80 Wt: 242.0 lb Gender: Male BSA: 2.31 Order #: [id number] Location: [facility] Room #: [id number] Reading Physician: Jamie Sandra MD, [facility] Business Architect: Vee Bill RDCS Ordering Physician: Samy Lara DO Primary Physician: Hakeem Bowling MD Indications: Atrial fibrillation, Congestive heart failure Impressions: LVEF 60-65%. Mild concentric left ventricular hypertrophy. Mild left ventricular diastolic dysfunction. Mildly dilated right ventricle. Poorly visualized. No significant valvular dysfunction. Left Ventricular Wall Motion: Rest Echo Findings All wall segments showed normal motion. Findings: Study Quality * Technically adequate exam. Aortic Valve * Trileaflet aortic valve with normal function. Mitral Valve * Normal mitral valve structure. No stenosis * Trace mitral regurgitation. Interatrial Septum * No evidence of PFO by color Doppler. Aorta * Normally sized aortic root. Left Ventricle * LVEF 60-65%. * Mild concentric left ventricular hypertrophy. * Mild left ventricular diastolic dysfunction. ECG Findings * Atrial fibrillation. Left Atrium * Moderately dilated left atrium. Tricuspid Valve * Estimated RVSP is 32 mmHg. * No pulmonary hypertension. * Mild tricuspid regurgitation. * Estimated RA pressure is 5-8 mmHg. Pulmonic Valve * No pulmonic regurgitation. * No pulmonic stenosis. Pericardium * There is a trivial pericardial effusion present. Right Ventricle * Mildly dilated right ventricle. Poorly visualized. Right Atrium * Moderately dilated right atrium. IVC * The IVC is dilated. * > 50% respiratory change History Hypertension Diabetes Hypercholesteremia Family History of CAD History of CAD/PTCA Myocardial Infarction Coronary Artery Bypass Graft Congestive Heart Failure 04-18-16 a Previous Echo was performed. Measurements: BP: 139/ 75 2D Normal Values RVIDd: 3.60 cm <2.7 cm IVSd: 1.50 cm 0.6 - 1.0 cm LVIDd: 5.30 cm 3.7 - 5.6 cm LVPWd: 1.60 cm 0.6 - 1.1 cm LVIDs: 2.60 cm 1.5 - 3.6 cm AO: 3.20 cm < 4.0 cm LA: 4.80 cm 2.0 - 4.0cm %FS: 50.90 cm >25 % LVOT Diam: 2.10 cm LA volume: 77 Mitral Valve Peak E:1.01 m/sec Peak A:.37 m/sec E/A Ratio:2.8 Peak E' Lat Fly:8.87 cm/s Peak E' Med Fly:5.17 cm/s E/E' Lat Ratio:11.4 E/E' Med Ratio:19.5 Tricuspid Valve TV Regurg Peak Grad: 32.00mmHg TV Regurg Peak Fly: 2.81m/sec Updated by Jamie Sandra MD, FACC on 06/25/2016 8:35:34 AM electronically signed on 06/25/2016 8:36:19 AM with status of Final Wall Motion Ortega: 1=Normal, 2=Hypokinesis, 3=Akinesis, 4=Dyskinesis, 5=Aneurysmal, 6=Hyperkinetic, X=Not Visualized (Blank)=Missing
--- NOTE | 2016-06-25 08:47 | Internal Med Progress Note ---
<Jonah Lee - Last Filed: 06/25/16 15:45> Date of Encounter: 06/25/16 Time of Encounter: 08:47 - Assessment and plan (1) Cellulitis of left hand Current Visit: Yes Status: Acute Assessment and plan: On unasyn IV, swelling and erythema have improved, pain is better, con't current regimen. (2) Acute renal failure superimposed on stage 4 chronic kidney disease Current Visit: No Status: Acute Assessment and plan: Slowly improving, nephro on board, likely 2/2 pre-renal from decreased effective arterial blood vol to his kidney from anemia and low albumin, third spacing with edematous extremities, con't high protein diet, avoid nephrotoxic agents. 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 (4) Anasarca associated with disorder of kidney Current Visit: No Status: Acute Assessment and plan: Low albumin, third spacing, con't high protein diet. 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 (6) Diabetes mellitus Current Visit: No Status: Chronic Assessment and plan: Con't SSI, stop glipizide. Qualifiers: Diabetes mellitus type: type 2 Diabetes mellitus complication status: with unspecified complications Diabetes mellitus bed bug exterminator insulin use: without bed bug exterminator use Qualified Code(s): E11.8 - Type 2 diabetes mellitus with unspecified complications (7) DVT prophylaxis Current Visit: Yes Status: Acute Assessment and plan: IPCs. - Subjective Interval history: Pt seen and examined, pt states his left hand swelling is better and pain is better, no other complaints or pains. - Constitutional Vitals: Temp Pulse Resp BP Pulse Ox 98.2 F 96 18 100/59 99 06/25/16 07:00 06/25/16 07:00 06/25/16 07:00 06/25/16 07:00 06/25/16 07:00 General appearance: Present: cooperative, A&O X 3, pleasant, no acute distress, answers questions appropriately - Head Head exam: Present: atraumatic, normocephalic - Eye Eye exam: Present: PERRL, conjuntiva pink, sclera anicteric Pupils: Present: PERRL - Neck Neck exam general surgery: Present: supple, trachea midline. Absent: lymphadenopathy - Respiratory Respiratory exam: Present: CTAB. Absent: accessory muscle use, rales, rhonchi, wheezes - Cardiovascular Cardiovascular exam: Present: RRR, +S1, +S2. Absent: diastolic murmur, gallop, rubs, systolic murmur - GI/Abdominal GI/Abdominal exam: Present: normal bowel sounds, soft, no peritoneal signs. Absent: distended, tenderness - Extremities Exam Extremities exam: Present: warm, radial pulses palpable and symetrical. Absent : calf tenderness, cyanotic, normal inspection (left hand erythematous but it has improved, swelling better), pedal edema - Neurological Exam Neurological exam: Present: CN II-XII intact, oriented X3, no focal deficits. Absent: pronater drift, facial droop, speech deficit - Skin Skin exam: Present: dry, intact Internal Medicine: Result - Labs CBC & Chem 7: 06/25/16 05:45 06/25/16 05:45 Labs: Short CBC 06/24/16 06/25/16 Range/Units 20:07 05:45 WBC 2.5 L 2.0 L (4.3-11.1) K/mcL Hgb 8.3 L 7.6 L (12.9-16.9) g/dL Hct 25.4 L 23.5 L (37.5-50.1) % Plt Count 27 L* D 23 L* (140-400) K/mcL Neutrophils # 0.1 L 0.1 L (1.6-8.9) K/mcL BMP 06/24/16 06/25/16 20:07 05:45 Sodium 143 145 Potassium 4.6 H 4.3 Chloride 111 H 112 H Carbon Dioxide 22 23 BUN 92 H 91 H Creatinine 3.04 H 3.04 H Glucose 95 79 Calcium 8.7 8.6 Liver Function 06/24/16 Range/Units 20:07 Total Bilirubin 0.6 (0.2-1.2) mg/dL AST 16 (5-34) Units/L ALT 17 (0-55) Units/L Alkaline Phosphatase 196 H (38-126) Units/L Albumin 2.9 L (3.5-5.0) g/dL Urine 06/25/16 Range/Units 05:45 Urine Color Yellow (Yellow) Urine Clarity Clear (Clear) Urine pH 5.5 (5.0-8.0) pH Units Ur Specific [place] 1.022 (1.010-1.025) Urine Protein Trace (Neg-Trace) mg/dL Urine Glucose (UA) Normal (Normal) mg/dL - VTE Reasons for not Prescribing Prophylaxis: Medical contraindication Consult Discharge Plan - Plan Referrals: NO,PCP [Primary Care Provider] - <Jad Zaragoza P - Last Filed: 06/25/16 17:07> Date of Encounter: 06/25/16 - Constitutional Vitals: Temp Pulse Resp BP Pulse Ox 97.8 F 108 16 116/69 93 L 06/25/16 16:03 06/25/16 16:03 06/25/16 16:03 06/25/16 16:03 06/25/16 16:03 Internal Medicine: Result - Labs CBC & Chem 7: 06/25/16 05:45 06/25/16 05:45 Labs: Short CBC 06/24/16 06/25/16 Range/Units 20:07 05:45 WBC 2.5 L 2.0 L (4.3-11.1) K/mcL Hgb 8.3 L 7.6 L (12.9-16.9) g/dL Hct 25.4 L 23.5 L (37.5-50.1) % Plt Count 27 L* D 23 L* (140-400) K/mcL Neutrophils # 0.1 L 0.1 L (1.6-8.9) K/mcL BMP 06/24/16 06/25/16 20:07 05:45 Sodium 143 145 Potassium 4.6 H 4.3 Chloride 111 H 112 H Carbon Dioxide 22 23 BUN 92 H 91 H Creatinine 3.04 H 3.04 H Glucose 95 79 Calcium 8.7 8.6 Liver Function 06/24/16 Range/Units 20:07 Total Bilirubin 0.6 (0.2-1.2) mg/dL AST 16 (5-34) Units/L ALT 17 (0-55) Units/L Alkaline Phosphatase 196 H (38-126) Units/L Albumin 2.9 L (3.5-5.0) g/dL Urine 06/25/16 Range/Units 05:45 Urine Color Yellow (Yellow) Urine Clarity Clear (Clear) Urine pH 5.5 (5.0-8.0) pH Units Ur Specific [place] 1.022 (1.010-1.025) Urine Protein Trace (Neg-Trace) mg/dL Urine Glucose (UA) Normal (Normal) mg/dL - Attending Attestation I examined this patient and my medical decision-making was reviewed with the PRINTING SIGN MACHINE OPERATOR/PA/Advanced Practice Nurse/Resident Physician. I agree with the documented findings, disposition and treatment plan as described except to the extent set forth below. follow oncology recommendations
[2016-06-25] MEDS: Insulin LISPRO 300 UNITS/3 ML VIAL SQ SCH ×4 (10:25→21:41)
[2016-06-25] MEDS: Loratadine 10 MG TABLET PO SCH (10:27)
[2016-06-25] MEDS: Cholecalciferol (D-3) 1,000 UNIT TABLET PO SCH (10:27)
[2016-06-25] MEDS: Multivit/Ca/Min/Fe/FA 1 TAB TABLET PO SCH (10:27)
[2016-06-25] MEDS: Febuxostat [Uloric] 80 MG PO SCH (10:28)
--- NOTE | 2016-06-25 15:16 | Oncology Inp Consult Note ---
<Sharon Loo E - Last Filed: 06/25/16 15:42> Date of Encounter: 06/25/16 Time of Encounter: 14:00 - Data of Consult Patient: known to practice within the last 3 years Consult date: 06/25/16 Requesting Physician: Jad Zaragoza MD Primary Care Provider: PCP NO - Consult Narrative Reason for consult: Pancytopenia History of present illness: Mr. Calderon is a 80 year old male who was recently admitted to [facility] secondary to worsening kidney function. He was transferred from [facility]. His current CBC indicated a white blood cell count of 2.0, hemoglobin of 7.6 and platelets 23,000 with an absolute neutrophil count of 1000. He was transfused yesterday was 1 unit of packed cells however was discontinued secondary to an infusion reaction. He is well known to our practice. He is currently a patient of . He is currently being seen for pancytopenia likely related to splenic marginal zone lymphoma. His oncology history is as follows: He was first seen by 02/06/2014 for pancytopenia that time his white blood cell count was 3.9, hemoglobin 9.4, platelets 45,000 and an absolute neutrophil count of 2800. At that time he was hospitalized for acute cholangitis. Chemotherapy was documented on his chart dating back to December 2012. He has had fluctuating hemoglobin levels with a hemoglobin as low as 8.4 back in September 2011. Workup cytopenias: Hematinic panel-normal Mcdonough level, borderline low B12 level but elevated MMA. He was on oral vitamin B12 supplementation after excluding pernicious anemia. Rheumatoid panel negative, chronic hepatitis panel negative , mutation analysis negative for BCR: ABL and Saúl 2 mutations, thyroid panel normal, peripheral blood flow cytometry was clonal and revealed an immunophenotype suggestive of marginal zone lymphoma. Protein-like pheresis was negative for monoclonal paraprotein. Liver and spleen ultrasound revealed a 13 cm splenomegaly. Liver was unremarkable. In July 2014 had a bone marrow biopsy that showed a small population of monoclonal B cells with featured typical for low-grade lymphoma. From 10/31/2015 through 01/03/2016 he completed 3 cycles of Rituxan plus bendamustine. Treatment was stopped due to significant treatment related fatigue and prolonged cytopenia despite significant dose adjustments. On 04/17/2016 he started Rituxan maintenance every 2 months. This is given for period of 2 years. 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 On 06/2015 he started on IVIG every 2 months. He did have dose reduction of IVIG to accommodate underlying significant kidney dysfunction. On 10/31/2015 he was started on Rituxan day 1 bendamustine day 1 day to every 28 day regimen secondary to development of progressive cytopenia which was attributed to marginal zone lymphoma. The plan was to treat 4-6 cycles based on response tolerability. Chemotherapy dose was adjusted to accommodate advanced age and comorbidities. Last bendamustine was given on 01/03/2016. Last Rituxan was given on 04/17/2016 and IVIG was given that day as well. May 2016 he was hospitalized with acute, profound, unexplained anemia he peripheral blood flow cytometry done during this hospitalization did have an EGD and colonoscopy on 05/28/2016 that was unremarkable active bleeding source. 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 A bone marrow study was recommended. I did discuss with the patient at great length today whether he wanted to have another bone marrow study. The patient did agree to have this study done. He states that once the results are available he would like to sit down with Dr. Ko,his and discussed the findings and the plan of care. The patient is also being seen by Dr. Reed and Palliative. Notes reviewed. Past Med Surg Social Fam HX - Past Medical History Medical history: arthritis, atrial fibrillation, cancer, cardiomyopathy, CHF, coronary artery disease, diabetes, GERD, hyperlipidemia, hypertension, malignancy, osteoporosis, peripheral artery disease, renal disease (Stage III), other (Gout and peripheral neuropathy) Psychiatric history: no psych history - Past Surgical History Surgical History: arthroscopy, cancer surgery, cataract, cholecystectomy, coronary bypass (CABG), knee replacement, orthopedic, other (Rotator cuff repair , foot surgery, left and right knee replacements, cataract removal, colonoscopy, ), other - Social History Smoking Status: Unknown if ever smoked Smokeless Tobacco Status: No Alcohol use: none Drug use: none - Family History Mother Hx Family Cardiac Disorders: Yes (Congestive heart failure) Hx Family Cancer: Yes (Details unknown) Hx Family Endocrine Disorder: Yes (Diabetic) Medications and Allergies Amlodipine Besylate [Norvasc] 10 mg PO DAILY 01/13/15 [History] Aspirin 81 mg PO DAILY 01/13/15 [History] Atenolol [Tenormin] 50 mg PO BID 01/13/15 [History] Cholecalciferol (D-3) 2,000 units PO DAILY 01/13/15 [History] Febuxostat [Uloric] 80 mg PO DAILY 01/13/15 [History] GlipiZIDE [Glucotrol] 5 mg PO BID 01/13/15 [History] Lisinopril [Zestril] 20 mg PO DAILY 01/13/15 [History] Loratadine [Alavert] 10 mg PO DAILY 01/13/15 [History] Multivitamin [Multivitamins] 1 cap PO DAILY 01/13/15 [History] [place]-3 Fatty Acids [Fish Oil] 1,200 mg PO DAILY 01/13/15 [History] Rosuvastatin Calcium [Crestor] 10 mg PO DAILY 01/13/15 [History] Furosemide [Lasix] 20 mg PO DAILY #30 tablet 04/18/16 [Rx] Aminocaproic Acid [Amicar] 1,000 mg PO Q6H #120 tablet 06/15/16 [Rx] Levofloxacin 750 mg PO Q48H #7 tablet 06/15/16 [Rx] Omeprazole [PriLOSEC] 40 mg PO DAILY #30 cap 06/15/16 [Rx] Diclofenac Sodium [Voltaren] 1 appl TP QID PRN 06/22/16 [History] Allergies No Known Allergies Allergy (Verified 01/20/15 10:11) All systems: reviewed and no additional remarkable complaints except as stated Constitutional: Present: fatigue Cardiovascular: Absent: as per HPI (Denies chest pain,shortness of breath does report having swelling in his lower extremities that has been present "for 30 years ".) Oncology - Exam - Constitutional Vitals: Temp Pulse Resp BP Pulse Ox 98.2 F 96 18 100/59 99 06/25/16 07:00 06/25/16 07:00 06/25/16 07:00 06/25/16 07:00 06/25/16 07:00 General appearance: no acute distress, obese - Head Head exam: Present: normal inspection - Neck Neck exam: Present: normal inspection (Nontender) - Respiratory Respiratory exam: Present: CTAB - Cardiovascular Cardiovascular exam: Present: RRR - GI/Abdominal GI/Abdominal exam: Present: normal bowel sounds, soft (Nontender) - Extremities Exam Extremities exam: Present: pedal edema - Psychiatric Psychiatric exam: Present: normal affect, normal mood - Skin Skin exam: Present: erythema (The dorsal aspect of the left hand) Oncology - Results - Labs Labs: Short CBC 06/24/16 06/25/16 Range/Units 20:07 05:45 WBC 2.5 L 2.0 L (4.3-11.1) K/mcL Hgb 8.3 L 7.6 L (12.9-16.9) g/dL Hct 25.4 L 23.5 L (37.5-50.1) % Plt Count 27 L* D 23 L* (140-400) K/mcL Neutrophils # 0.1 L 0.1 L (1.6-8.9) K/mcL BMP 06/24/16 06/25/16 20:07 05:45 Sodium 143 145 Potassium 4.6 H 4.3 Chloride 111 H 112 H Carbon Dioxide 22 23 BUN 92 H 91 H Creatinine 3.04 H 3.04 H Glucose 95 79 Calcium 8.7 8.6 Liver Function 06/24/16 Range/Units 20:07 Total Bilirubin 0.6 (0.2-1.2) mg/dL AST 16 (5-34) Units/L ALT 17 (0-55) Units/L Alkaline Phosphatase 196 H (38-126) Units/L Albumin 2.9 L (3.5-5.0) g/dL Urine 06/25/16 Range/Units 05:45 Urine Color Yellow (Yellow) Urine Clarity Clear (Clear) Urine pH 5.5 (5.0-8.0) pH Units Ur Specific [place] 1.022 (1.010-1.025) Urine Protein Trace (Neg-Trace) mg/dL Urine Glucose (UA) Normal (Normal) mg/dL Consult Discharge Plan - Plan Referrals: NO,PCP [Primary Care Provider] - Attestation: My signature below is to certify that this patient is under my care and that I, or nurse practitioner, or a physician's operational assistant working with me, has a face-to -face encounter with this patient. <Neda Falcon S - Last Filed: 06/25/16 17:29> Date of Encounter: 06/25/16 - Data of Consult Requesting Physician: Jad Zaragoza MD Primary Care Provider: PCP NO - Consult Narrative History of present illness: Mr. Calderon is a 80 year old male Oncology - Exam - Constitutional Vitals: Temp Pulse Resp BP Pulse Ox 97.8 F 108 16 116/69 93 L 06/25/16 16:03 06/25/16 16:03 06/25/16 16:03 06/25/16 16:03 06/25/16 16:03 Oncology - Results - Labs Labs: Short CBC 06/24/16 06/25/16 Range/Units 20:07 05:45 WBC 2.5 L 2.0 L (4.3-11.1) K/mcL Hgb 8.3 L 7.6 L (12.9-16.9) g/dL Hct 25.4 L 23.5 L (37.5-50.1) % Plt Count 27 L* D 23 L* (140-400) K/mcL Neutrophils # 0.1 L 0.1 L (1.6-8.9) K/mcL BMP 06/24/16 06/25/16 20:07 05:45 Sodium 143 145 Potassium 4.6 H 4.3 Chloride 111 H 112 H Carbon Dioxide 22 23 BUN 92 H 91 H Creatinine 3.04 H 3.04 H Glucose 95 79 Calcium 8.7 8.6 Liver Function 06/24/16 Range/Units 20:07 Total Bilirubin 0.6 (0.2-1.2) mg/dL AST 16 (5-34) Units/L ALT 17 (0-55) Units/L Alkaline Phosphatase 196 H (38-126) Units/L Albumin 2.9 L (3.5-5.0) g/dL Urine 06/25/16 Range/Units 05:45 Urine Color Yellow (Yellow) Urine Clarity Clear (Clear) Urine pH 5.5 (5.0-8.0) pH Units Ur Specific [place] 1.022 (1.010-1.025) Urine Protein Trace (Neg-Trace) mg/dL Urine Glucose (UA) Normal (Normal) mg/dL Attestation: My signature below is to certify that this patient is under my care and that I, or nurse practitioner, or a physician's operational assistant working with me, has a face-to -face encounter with this patient.
--- NOTE | 2016-06-25 17:17 | Event Note ---
Date of Encounter: 06/25/16 Time of Encounter: 17:15 Palliative care following for goals of care. Mr. Calderon is moving forward with bone marrow biopsy and would like to discuss goals when the results are available. The palliative care team will follow from a distance until biopsy results are available or the patient's condition deteriorates. Please contact the team if needed. Thank you.
--- NOTE | 2016-06-25 18:23 | Nephrology Progress Note ---
Date of Encounter: 06/25/16 Time of Encounter: 14:40 - Assessment and Plan (1) Acute renal failure superimposed on stage 3 chronic kidney disease Current Visit: Yes Status: Acute SCr is stable. Non-oliguric JOSE on CKD stage IIIb. Hyperuricemia noted: typically he uses Uloric for uric acid lowering therapy. I do not suspect this is an acute elevated but likely multifactorial from reduced GFR, and not being on his Uloric. Will resuming his uric acid lowering therapy; he does not appear to urgently need rasburicase at this point. Chronic edema: stop IVF to lower the risk of swinging the pendulum from a pre- renal JOSE to fluid overload. If renal function remains stable, then will re- introduce diuretics. Avoid nephrotoxins: dose Rx by GFR, salt restriction but protein shake added diet, avoid nephrotoxins. No urgent need for CUSTOMS AGENT. Continue to follow a renal conservative/protective strategy. Thank you. 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 (5) Cellulitis of left hand Current Visit: Yes Status: Acute Subjective Principal diagnosis: JOSE on CKD Interval history: Pt was s/e. He did not affirm any major uremic complaints. I reviewed his labs, meds and vitals. I reviewed the interval notes: upcoming BM biopsy. Objective - Vital Signs Vital signs: Vital Signs Temp Pulse Resp BP Pulse Ox 06/25/16 16:03 97.8 F 108 16 116/69 93 L 06/25/16 07:00 98.2 F 96 18 100/59 99 06/25/16 05:00 97.7 F 82 20 104/76 92 L 06/25/16 00:00 98.5 F 105 24 94/56 9 L 06/24/16 21:13 100.4 F H 06/24/16 20:34 124 20 128/64 06/24/16 18:58 99.6 F 113 20 111/68 98 06/24/16 18:45 99.6 F 113 20 111/68 Intake and Output 06/25/16 06/25/16 06/25/16 07:59 15:59 23:59 Intake Total 200 / 200 240 / 240 Output Total 250 / 250 200 / 200 Balance -50 / -50 40 / 40 Intake: IV Fluids 100 / 100 Unasyn 1,500 mg In 0.9 % 100 / 100 Sodium Chloride (Mini-Bag +) 100 ML @ 200 mls/hr IVPB Q12H [facility] Rx#: [id number] Oral 0 / 0 240 / 240 Blood Product 100 / 100 Rbcs Leuko Poor As-1 100 / 100 Unit [id number] Output: Urine 250 / 250 200 / 200 Other: Meal Lunch Percent of Meal Consumed 5% # Voids 0 Blood Glucose* 173 - General Appearance Exam: General appearance: well-developed, obese, chronically ill, frail EENT: ATNC, mucous membranes moist Neck: supple Respiratory: clear Cardiology: edema (1-2+ pretibial pitting edema), irregular rhythm, normal S1, normal S2 Gastrointestinal: normoactive bowel sounds, no tenderness, no guarding, obese Integumentary: warm and dry, chronic venous stasis Neurologic: no focal deficit, no asterixis, alert and oriented x3 Musculoskeletal: no deformities, no cyanosis Psychiatric: depressed, cooperative - Lab 06/25/16 05:45 06/25/16 05:45 Most recent lab results Calcium 8.6 mg/dL (8.6-10.8) 06/25/16 05:45 Phosphorus 4.3 mg/dL (2.3-4.7) 06/25/16 05:45 Magnesium 2.3 mg/dL (1.6-2.6) 06/25/16 05:45 - VTE Reasons for not Prescribing Prophylaxis: Medical contraindication Consult Discharge Plan - Plan Referrals: NO,PCP [Primary Care Provider] -
[2016-06-26] MEDS: Ampicillin/Sulbactam 1,500 MG in 0.9 % Sodium Chloride Mini Bag 100 ML IVPB SCH ×2 (05:57→18:22)
[2016-06-26 06:05] LABS: Hemoglobin 7.1 g/dL (12.9-16.9)
[2016-06-26 06:07] LABS: Hematocrit 21.8 % (37.5-50.1); Immature Granulocytes % 2.3 % (0-4); Lymphocytes % 20.3 %; Mean Corpuscular HGB Conc 32.6 g/dL (31.6-35.5); Mean Corpuscular Hemoglobin 30.1 pg (28.0-33.3); Mean Corpuscular Volume 92.4 fL (83.0-100.0); Mean Platelet Volume 12.7 fL (9.4-12.4); Monocytes # 1.6 K/mcL (0.0-1.3); Monocytes % 72.4 %; Neutrophils # 0.1 K/mcL (1.6-8.9); Red Blood Count 2.36 M/mcL (4.19-5.50); Red Cell Distribution Width 15.6 % (11.5-14.5)
[2016-06-26 06:20] LABS: Calcium 8.7 mg/dL (8.6-10.8); Potassium 4.4 mEq/L (3.5-4.5)
[2016-06-26 06:26] LABS: Lymphocytes # 0.5 K/mcL (0.6-4.6)
[2016-06-26 06:28] LABS: Platelet Count 18 K/mcL (140-400)
[2016-06-26 06:29] LABS: Platelet Estimate Decreased (Normal)
--- NOTE | 2016-06-26 08:38 | Internal Med Progress Note ---
<Jonah Lee - Last Filed: 06/26/16 14:56> Date of Encounter: 06/26/16 Time of Encounter: 08:38 - Assessment and plan (1) Cellulitis of left hand Current Visit: Yes Status: Acute Assessment and plan: On unasyn IV, swelling and erythema have improved, pain is better, con't current regimen, switch to PO upon discharge. (2) Acute renal failure superimposed on stage 4 chronic kidney disease Current Visit: No Status: Acute Assessment and plan: Slowly improving, nephro on board, likely 2/2 pre-renal from decreased effective arterial blood vol to his kidney from anemia and low albumin, third spacing with edematous extremities, con't high protein diet, avoid nephrotoxic agents, due to chronic edema, will resume lasix po home dose today. 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 (4) Anasarca associated with disorder of kidney Current Visit: No Status: Acute Assessment and plan: Low albumin, third spacing, con't high protein diet. 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 (6) Diabetes mellitus Current Visit: No Status: Chronic Assessment and plan: Con't SSI, stop glipizide. 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 - Subjective Interval history: Pt seen and examined, pt states his left hand swelling is better and pain is better, no other complaints or pains. - Constitutional Vitals: Temp Pulse Resp BP Pulse Ox 99.3 F 106 18 112/63 95 06/26/16 07:27 06/26/16 07:27 06/26/16 07:27 06/26/16 07:27 06/26/16 07:27 General appearance: Present: cooperative, A&O X 3, pleasant, no acute distress, answers questions appropriately - Head Head exam: Present: atraumatic, normocephalic - Eye Eye exam: Present: PERRL, conjuntiva pink, sclera anicteric Pupils: Present: PERRL - Neck Neck exam general surgery: Present: supple, trachea midline. Absent: lymphadenopathy - Respiratory Respiratory exam: Present: CTAB. Absent: accessory muscle use, rales, rhonchi, wheezes - Cardiovascular Cardiovascular exam: Present: RRR, +S1, +S2. Absent: diastolic murmur, gallop, rubs, systolic murmur - GI/Abdominal GI/Abdominal exam: Present: normal bowel sounds, soft, no peritoneal signs. Absent: distended, tenderness - Extremities Exam Extremities exam: Present: warm, radial pulses palpable and symetrical. Absent : calf tenderness, cyanotic, normal inspection (erythema and swelling is better on left hand), pedal edema - Neurological Exam Neurological exam: Present: CN II-XII intact, oriented X3, no focal deficits. Absent: pronater drift, facial droop, speech deficit - Skin Skin exam: Present: dry, intact Internal Medicine: Result - Labs CBC & Chem 7: 06/26/16 06:01 06/26/16 06:01 Labs: Short CBC 06/26/16 Range/Units 06:01 WBC 2.2 L (4.3-11.1) K/mcL Hgb 7.1 L (12.9-16.9) g/dL Hct 21.8 L (37.5-50.1) % Plt Count 18 L* (140-400) K/mcL Neutrophils # 0.1 L (1.6-8.9) K/mcL BMP 06/26/16 06:01 Sodium 143 Potassium 4.4 Chloride 112 H Carbon Dioxide 24 BUN 83 H Creatinine 2.34 H Glucose 162 H Calcium 8.7 - VTE Reasons for not Prescribing Prophylaxis: Medical contraindication Consult Discharge Plan - Plan Referrals: NO,PCP [Primary Care Provider] - <Kameron Paez - Last Filed: 06/26/16 17:50> Date of Encounter: 06/26/16 - Assessment and plan (1) Cellulitis of left hand Current Visit: Yes Status: Acute (2) Pancytopenia Current Visit: Yes Status: Acute (3) Atrial fibrillation Current Visit: No Status: Chronic Qualifiers: Atrial fibrillation type: paroxysmal Qualified Code(s): I48.0 - Paroxysmal atrial fibrillation (4) Marginal zone lymphoma, 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 (5) Obesity (BMI 30-39.9) Current Visit: No Status: Chronic - Constitutional Vitals: Temp Pulse Resp BP Pulse Ox 98.4 F 104 18 110/60 98 06/26/16 16:22 06/26/16 16:22 06/26/16 16:22 06/26/16 16:22 06/26/16 16:22 Internal Medicine: Result - Labs CBC & Chem 7: 06/26/16 06:01 06/26/16 06:01 Labs: Short CBC 06/26/16 Range/Units 06:01 WBC 2.2 L (4.3-11.1) K/mcL Hgb 7.1 L (12.9-16.9) g/dL Hct 21.8 L (37.5-50.1) % Plt Count 18 L* (140-400) K/mcL Neutrophils # 0.1 L (1.6-8.9) K/mcL BMP 06/26/16 06:01 Sodium 143 Potassium 4.4 Chloride 112 H Carbon Dioxide 24 BUN 83 H Creatinine 2.34 H Glucose 162 H Calcium 8.7 - Attending Attestation I examined this patient and my medical decision-making was reviewed with the Resident Physician on 06/26/16. I agree with the documented findings, disposition and treatment plan as described except to the extent set forth below. Mr. Calderon is currently admitted for acute cellulitis and pancytopenia - presumed related to chemotherapy versus acute hematologic process. He remains high risk due to potential for worsening infection and immunosuppression. Mr. Calderon feels OK. His hand erythema seems to be slowly improving. He is to have bone marrow biopsy tomorrow. No new symptoms. Exam Alert. Comfortable Heart reg No wheeze L hand with erythema I/P 1. Celluitis 2. Pancytopenia Further diagnoses and plan as above.
[2016-06-26] MEDS: Insulin LISPRO 300 UNITS/3 ML VIAL SQ SCH ×4 (08:43→21:22)
[2016-06-26] MEDS: Loratadine 10 MG TABLET PO SCH (08:45)
[2016-06-26] MEDS: Multivit/Ca/Min/Fe/FA 1 TAB TABLET PO SCH (08:45)
[2016-06-26] MEDS: Cholecalciferol (D-3) 1,000 UNIT TABLET PO SCH (08:45)
[2016-06-26] MEDS: Febuxostat [Uloric] 80 MG PO SCH (08:46)
--- NOTE | 2016-06-26 09:01 | Nephrology Progress Note ---
Date of Encounter: 06/26/16 Time of Encounter: 10:35 - Assessment and Plan (1) Acute renal failure superimposed on stage 3 chronic kidney disease Current Visit: Yes Status: Acute SCr continues to recover in the setting of a non-oliguric JOSE on CKD stage IIIb. This has been in part by holding his diuretics, and since he has chronic edema, I recommend resuming his Hyperuricemia noted: typically he uses Uloric for uric acid lowering therapy. I do not suspect this is an acute elevated but likely multifactorial from reduced GFR, and not being on his Uloric. Will resuming his uric acid lowering therapy; he does not appear to urgently need rasburicase at this point. Chronic edema: I've resumed his home dose of diuretics, which may need to be titrated. Avoid nephrotoxins: dose Rx by GFR, salt restriction but protein shake added diet, avoid nephrotoxins. 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 Continue to follow a renal conservative/protective strategy. Thank you. 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 (5) Cellulitis of left hand Current Visit: Yes Status: Acute As per primary. Subjective Principal diagnosis: JOSE on CKD Interval history: Pt was s/e. He did not affirm any major uremic complaints. I reviewed his labs, meds and vitals. I reviewed the interval notes: upcoming BM biopsy. His said that his may be scheduled for today or tomorrow. Objective - Vital Signs Vital signs: Vital Signs Temp Pulse Resp BP Pulse Ox 06/26/16 07:27 99.3 F 106 18 112/63 95 06/26/16 03:42 98.3 F 104 14 86/66 93 L 06/25/16 23:13 98.1 F 94 14 99/61 98 06/25/16 18:58 97.9 F 93 18 107/90 97 06/25/16 16:03 97.8 F 108 16 116/69 93 L Intake and Output 06/25/16 06/26/16 06/26/16 23:59 07:59 15:59 Intake Total 340 / 340 200 / 200 100 / 100 Output Total 300 / 300 400 / 400 200 / 200 Balance 40 / 40 -200 / -200 -100 / -100 Intake: IV Fluids 100 / 100 100 / 100 Unasyn 1,500 mg In 0.9 % 100 / 100 100 / 100 Sodium Chloride (Mini-Bag +) 100 ML @ 200 mls/hr IVPB Q12H [facility] Rx#: [id number] Oral 240 / 240 200 / 200 Output: Urine 300 / 300 400 / 400 200 / 200 Other: Meal Dinner Percent of Meal Consumed 5% Weight 110.1 kg Blood Glucose* 206 130 Patient Weight 06/26/16 23:59 Weight 110.1 kg - General Appearance General appearance: Present: well-developed, well-nourished, appears started age , frail EENT: Present: ATNC Neck: Present: supple Respiratory: Present: clear Cardiology: Present: edema, normal S1, normal S2 Gastrointestinal: Present: normoactive bowel sounds, no guarding, obese Integumentary: Present: no rash, warm and dry Neurologic: Present: no focal deficit, no asterixis, alert and oriented x3 Musculoskeletal: Present: no deformities, no clubbing Psychiatric: Present: mood/affect appropriate, cooperative - Lab 06/26/16 06:01 06/26/16 06:01 Most recent lab results Calcium 8.7 mg/dL (8.6-10.8) 06/26/16 06:01 Phosphorus 4.3 mg/dL (2.3-4.7) 06/25/16 05:45 Magnesium 2.3 mg/dL (1.6-2.6) 06/25/16 05:45 - VTE Reasons for not Prescribing Prophylaxis: Medical contraindication Consult Discharge Plan - Plan Referrals: NO,PCP [Primary Care Provider] -
[2016-06-26] MEDS: Furosemide 20 MG TABLET PO SCH (12:47)
[2016-06-27 06:00] LABS: Calcium 9.1 mg/dL (8.6-10.8); Potassium 4.6 mEq/L (3.5-4.5)
[2016-06-27 06:02] LABS: Hemoglobin 7.6 g/dL (12.9-16.9)
[2016-06-27 06:04] LABS: Hematocrit 23.9 % (37.5-50.1); Immature Platelets 9.6 % (1.1-6.1); Mean Corpuscular HGB Conc 31.8 g/dL (31.6-35.5); Mean Corpuscular Hemoglobin 29.1 pg (28.0-33.3); Mean Corpuscular Volume 91.6 fL (83.0-100.0); Red Blood Count 2.61 M/mcL (4.19-5.50); Red Cell Distribution Width 15.6 % (11.5-14.5)
[2016-06-27] MEDS: Ampicillin/Sulbactam 1,500 MG in 0.9 % Sodium Chloride Mini Bag 100 ML IVPB SCH ×2 (06:04→16:58)
[2016-06-27 06:11] LABS: Platelet Count 19 K/mcL (140-400)
[2016-06-27] MEDS ORDERED: *HR* Midazolam HCl 2 MG/2 ML VIAL IV PRN (08:10)
--- NOTE | 2016-06-27 08:23 | Oncology Inp Progress Note ---
Date of Encounter: 06/27/16 Time of Encounter: 07:34 Oncology: Subj Interval history: Patient seen and examined at bedside. Chart reviewed for details of ongoing management. was present at time of eval. He was having having episode of epistaxis just prior to my evaluation. Attributed to nasal cannula O2 and resolved at time of seeing him. Cellulitis left hand is better with ongoing antibiotics but he now has markedly swollen left lower extremity most pronounced leg. Doing relatively well otherwise. No other new issues today. 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 Review of systems: 12 point review of systems as noted above.All other systems are negative: Physical exam: Vital Signs Temp 98.1 F 06/27/16 07:00 Pulse 119 06/27/16 07:00 Resp 18 06/27/16 07:00 BP 151/72 06/27/16 07:00 Pulse Ox 94 L 06/27/16 07:00 GENERAL: Alert and oriented, lethargic appearing. Mental Status: Affect appropriate for circumstances Skin: No rashes or petechiae. No evidence of skin malignancy Extremities: No edema. No calf swelling or tenderness. No joint deformity. Neurologic: Global weakness but no focal sensorimotor abnormalities. Results: Laboratory Last Values WBC 2.7 K/mcL (4.3-11.1) L 06/27/16 05:35 RBC 2.61 M/mcL (4.19-5.50) L 06/27/16 05:35 Hgb 7.6 g/dL (12.9-16.9) L 06/27/16 05:35 Hct 23.9 % (37.5-50.1) L 06/27/16 05:35 MCV 91.6 fL (83.0-100.0) 06/27/16 05:35 MCH 29.1 pg (28.0-33.3) 06/27/16 05:35 MCHC 31.8 g/dL (31.6-35.5) 06/27/16 05:35 RDW 15.6 % (11.5-14.5) H 06/27/16 05:35 Plt Count 19 K/mcL (140-400) L* 06/27/16 05:35 MPV 11.0 fL (9.4-12.4) 06/27/16 05:35 Immature Gran % 2.3 % (0-4) 06/26/16 06:01 Seg Neutrophils % 5.0 % 06/26/16 06:01 Lymphocytes % 20.3 % 06/26/16 06:01 Monocytes % 72.4 % 06/26/16 06:01 Eosinophils % 0.0 % 06/26/16 06:01 Basophils % 0.0 % 06/26/16 06:01 Myelocytes % 10.0 % (0) H 06/24/16 04:03 Neutrophils # 0.1 K/mcL (1.6-8.9) L 06/26/16 06:01 Lymphocytes # 0.5 K/mcL (0.6-4.6) L 06/26/16 06:01 Monocytes # 1.6 K/mcL (0.0-1.3) H 06/26/16 06:01 Eosinophils # 0.0 K/mcL (0.0-0.6) 06/26/16 06:01 Basophils # 0.0 K/mcL (0.0-0.2) 06/26/16 06:01 Reactive Lymphocytes Present (Not Present) A 06/25/16 05:45 Platelet Estimate Decreased (Normal) L 06/26/16 06:01 Immature Plt Fraction 9.6 % (1.1-6.1) H 06/27/16 05:35 Polychromasia 1+ (Not Present) A 06/25/16 05:45 Sodium 145 mEq/L (136-145) 06/27/16 05:35 Potassium 4.6 mEq/L (3.5-4.5) H 06/27/16 05:35 Chloride 113 mEq/L (98-109) H 06/27/16 05:35 Carbon Dioxide 24 mEq/L (19-29) 06/27/16 05:35 BUN 67 mg/dL (8-26) H 06/27/16 05:35 Creatinine 1.86 mg/dL (0.72-1.25) H 06/27/16 05:35 Est GFR ( Amer) 42 (> 60) L 06/27/16 05:35 Est GFR (Non-Af Amer) 35 (> 60) L 06/27/16 05:35 BUN/Creatinine Ratio 36 (6-26) H 06/27/16 05:35 Glucose 125 mg/dL (70-99) H 06/27/16 05:35 POC Glucose 160 (58-89) H 06/26/16 19:54 Calculated Osmolality 321 (280-300) H 06/27/16 05:35 Uric Acid 11.0 mg/dL (3.5-7.2) H 06/25/16 05:45 Calcium 9.1 mg/dL (8.6-10.8) 06/27/16 05:35 Phosphorus 4.3 mg/dL (2.3-4.7) 06/25/16 05:45 Magnesium 2.3 mg/dL (1.6-2.6) 06/25/16 05:45 Total Bilirubin 0.6 mg/dL (0.2-1.2) 06/24/16 20:07 AST 16 Units/L (5-34) 06/24/16 20:07 ALT 17 Units/L (0-55) 06/24/16 20:07 Alkaline Phosphatase 196 Units/L (38-126) H 06/24/16 20:07 Creatine Kinase 159 Units/L (30-200) 06/25/16 05:45 Serum Total Protein 5.8 g/dL (6.0-8.3) L 06/24/16 20:07 Albumin 2.9 g/dL (3.5-5.0) L 06/24/16 20:07 Globulin 2.9 g/dL (2.4-3.5) 06/24/16 20:07 Albumin/Globulin Ratio 1.0 (1.1-2.2) L 06/24/16 20:07 PTH Intact 377.0 pg/ml (8.5-72.5) H 06/25/16 05:45 Urine Color Yellow (Yellow) 06/25/16 05:45 Urine Clarity Clear (Clear) 06/25/16 05:45 Urine pH 5.5 pH Units (5.0-8.0) 06/25/16 05:45 Ur Specific [place] 1.022 (1.010-1.025) 06/25/16 05:45 Urine Protein Trace mg/dL (Neg-Trace) 06/25/16 05:45 Urine Glucose (UA) Normal mg/dL (Normal) 06/25/16 05:45 Urine Ketones Negative mg/dL (Negative) 06/25/16 05:45 Urine Blood Negative (Negative) 06/25/16 05:45 Urine Nitrite Negative (Negative) 06/25/16 05:45 Urine Bilirubin Negative (Negative) 06/25/16 05:45 Urine Urobilinogen Normal mg/dL (Normal) 06/25/16 05:45 Ur Leukocyte Esterase Negative (Negative) 06/25/16 05:45 Urine Microscopic RBC 0-3 per hpf (0-3) 06/25/16 05:45 Urine Microscopic WBC 0-3 per hpf (0-3) 06/25/16 05:45 Ur Squamous Epith Cells Few per lpf (None-Few) 06/25/16 05:45 Urine Bacteria None Seen per hpf (None-Few) 06/25/16 05:45 Hyaline Casts Few per lpf (None-Few) 06/25/16 05:45 Blood Type A POSITIVE 06/24/16 11:50 Antibody Screen NEGATIVE 06/24/16 11:50 UMER, Poly Interpret NEG 06/24/16 20:07 Crossmatch See Detail 06/24/16 11:50 Reaction Pathol Review 06/24/16 20:07 Radiographic studies: Impression/recommendations: Pancytopenia: Most recent peripheral blood flow cytometry showed more than 40% blasts. The pathology was kind enough to discuss patient's findings with me. 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 He will be having a bone marrow exam this morning for definitive confirmation. I discussed with the patient and his regarding the results that have become available since I last saw him in the office. He understands that if he is confirmed to have a poor risk acute myelogenous leukemia, this portends a very adverse prognosis and is incurable. Options for treatment would include low intensity therapy with hypomethylating agent with the goal of disease control. Unfortunately, he is an appropriate candidate for high intensity, potentially curative treatment such as attentive chemotherapy regimen/sentinel transplant. Further recommendation regarding treatment options and prognosis to be based on findings and bone marrow biopsy. He had a reaction to platelet transfusion 06/24/15. Fortunately, platelet count has been holding steady subsequently. If he were to develop critical thrombocytopenia, we'll may be able to rechallenge him with platelets and premedicate him with Benadryl 50 mg 1, hydrocortisone 100 mg IV 1, Tylenol 650 mg by mouth 1 to be given 15 minutes prior to transfusion. Rest of his cytopenias remains stable and we'll monitor. Epistaxis: I do not believe his epistaxis explained on the basis of thrombocytopenia. Likely related to nasal cannula O2. We recommend humidified oxygen to reduce risk for repeat epistaxis. He is already on Amicar for bleeding prophylaxis and will continue. I ordered a dose of octreotide LAR for management of GI bleed during his recent clinic visit with us. We'll follow the patient along side you during this hospitalization but please do not hesitate to call regarding interval hematologic questions as they arise. Thank you for your excellent ongoing care for allowing us to see him while in- house. This report was created using voice recognition software and may contain errors. It was signed but not edited to expedite communication. Exam: - Constitutional Vitals: Vital Signs Temp Pulse Resp BP Pulse Ox 06/27/16 07:00 98.1 F 119 18 151/72 94 L 06/27/16 02:50 112 16 126/62 98 06/26/16 21:11 98.2 F 115 19 126/80 96 06/26/16 16:22 98.4 F 104 18 110/60 98 06/26/16 11:53 97.4 F L 112 26 110/60 99 06/26/16 09:35 99.8 F H 104 24 112/63 94 L 06/26/16 08:20 95 Intake and Output 06/26/16 06/27/16 06/27/16 16:59 00:59 08:59 Intake Total 100 / 100 0 / 0 Output Total 350 / 350 175 / 175 250 / 250 Balance -350 / -350 -75 / -75 -250 / -250 Intake: IV Fluids 100 / 100 Unasyn 1,500 mg In 0.9 % 100 / 100 Sodium Chloride (Mini-Bag +) 100 ML @ 200 mls/hr IVPB Q12H [facility] Rx#: [id number] Oral 0 / 0 Output: Urine 350 / 350 175 / 175 250 / 250 Other: Stool Size Moderate Stool Color Brown # Voids 1 # Bowel Movement Diapers 1 Weight 100.5 kg Blood Glucose* 124 160 127 Patient Weight 06/28/16 00:59 Weight 100.5 kg Oncology: Obj Data - Labs CBC & Chem 7: 06/27/16 05:35 06/27/16 05:35 Labs: Laboratory Results - last 24 hr 06/26/16 06/26/16 06/26/16 07:30 12:13 16:15 WBC RBC Hgb Hct MCV MCH MCHC RDW Plt Count MPV Immature Plt Fraction Sodium Potassium Chloride Carbon Dioxide BUN Creatinine Est GFR ( Amer) Est GFR (Non-Af Amer) BUN/Creatinine Ratio Glucose POC Glucose 130 H 150 H 124 H Calculated Osmolality Calcium 06/26/16 06/27/16 06/27/16 19:54 05:35 05:35 WBC 2.7 L RBC 2.61 L Hgb 7.6 L Hct 23.9 L MCV 91.6 MCH 29.1 MCHC 31.8 RDW 15.6 H Plt Count 19 L* MPV 11.0 Immature Plt Fraction 9.6 H Sodium 145 Potassium 4.6 H Chloride 113 H Carbon Dioxide 24 BUN 67 H Creatinine 1.86 H Est GFR ( Amer) 42 L Est GFR (Non-Af Amer) 35 L BUN/Creatinine Ratio 36 H Glucose 125 H POC Glucose 160 H Calculated Osmolality 321 H Calcium 9.1 Consult Discharge Plan - Plan Referrals: NO,PCP [Primary Care Provider] -
[2016-06-27 08:44] LABS: Lymphocytes # 0.7 K/mcL (0.6-4.6); Monocytes # 1.6 K/mcL (0.0-1.3); Neutrophils # 0.4 K/mcL (1.6-8.9)
[2016-06-27 08:45] LABS: Basophilic Stippling 1+ (Not Present); Platelet Estimate Marked Decrease (Normal); Reactive Lymphocytes Present (Not Present)
--- NOTE | 2016-06-27 08:59 | Nephrology Progress Note ---
Date of Encounter: 06/27/16 Time of Encounter: 10:15 - Assessment and Plan (1) Acute renal failure superimposed on stage 3 chronic kidney disease Status: Acute SCr continues to recover in the setting of a non-oliguric JOSE on CKD stage IIIb. Yesterday I resumed his lasix 20mg po daily. He is making excellent UOP, which may be in part from an autodiuresis. Will continue the Lasix and monitor his serum K+, which is at 4.6 (elevated according to the Drea reference range), but well below 5, which is the goal. This K+ level should improve while on Lasix. Hyperuricemia noted: typically he uses Uloric for uric acid lowering therapy. I do not suspect this is an acute elevated but likely multifactorial from reduced GFR, and not being on his Uloric. Continue allopurinol 100mg per day, while hospitalized. Rarely, but allopurinol (and his outpatient Uloric) could contribute to a megaloblastic anemia. If Heme/Onc suspects that allopurinol/Uloric is a factor in his anemia, then stop this medication. However, he does have symptomatic hyperuricemia, which is why I've provided this therapy. Avoid nephrotoxins: dose Rx by GFR, salt restriction but protein shake added diet, avoid nephrotoxins. 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 Continue to follow a renal conservative/protective strategy. Thank you. 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 (5) Cellulitis of left hand Status: Acute As per primary. Subjective Principal diagnosis: JOSE on CKD Interval history: Pt was seen, examined. He did not affirm N/V/D or dysuria. No major complaints were reported to me. Objective - Vital Signs Vital signs: Vital Signs Temp Pulse Resp BP Pulse Ox 06/27/16 07:00 98.1 F 119 18 151/72 94 L 06/27/16 02:50 112 16 126/62 98 06/26/16 21:11 98.2 F 115 19 126/80 96 06/26/16 16:22 98.4 F 104 18 110/60 98 06/26/16 11:53 97.4 F L 112 26 110/60 99 06/26/16 09:35 99.8 F H 104 24 112/63 94 L Intake and Output 06/26/16 06/27/16 06/27/16 23:59 07:59 15:59 Intake Total 100 / 100 0 / 0 Output Total 425 / 425 250 / 250 Balance -325 / -325 -250 / -250 Intake: IV Fluids 100 / 100 Unasyn 1,500 mg In 0.9 % 100 / 100 Sodium Chloride (Mini-Bag +) 100 ML @ 200 mls/hr IVPB Q12H [facility] Rx#: [id number] Oral 0 / 0 Output: Urine 425 / 425 250 / 250 Other: Weight 100.5 kg Blood Glucose* 160 127 Patient Weight 06/27/16 23:59 Weight 100.5 kg - General Appearance General appearance: Present: well-developed, obese, frail EENT: Present: ATNC, mucous membranes moist Neck: Present: supple Respiratory: Present: clear Cardiology: Present: edema, regular rate, normal S1, normal S2 Gastrointestinal: Present: normoactive bowel sounds, no tenderness, no guarding Integumentary: Present: no rash, warm and dry Neurologic: Present: no focal deficit, no asterixis, alert and oriented x3 Musculoskeletal: Present: no deformities, no erythema Psychiatric: Present: mood/affect appropriate, cooperative - Lab 06/28/16 05:51 06/28/16 05:51 Most recent lab results Calcium 9.1 mg/dL (8.6-10.8) 06/27/16 05:35 Phosphorus 4.3 mg/dL (2.3-4.7) 06/25/16 05:45 Magnesium 2.3 mg/dL (1.6-2.6) 06/25/16 05:45 - VTE Reasons for not Prescribing Prophylaxis: Medical contraindication Consult Discharge Plan - Plan Instructions: Furosemide (By mouth), Amoxicillin/Clavulanate Potassium (By mouth), Heart Failure (DC), Atrial Fibrillation (DC), Diabetes Mellitus Type 2 in Adults (DC), Bone Marrow Failure in Children (GEN), Chronic Hypertension (DC) , Anemia (GEN), Pneumonia (DC) Referrals: Neda Falcon MD [Partnered Physician] - 07/04/16 1:30 pm (F/u with pt' s primary oncologist for bone marrow biopsy result and f/u on lymphoma) Edmond Kiser CNP [Advanced Practice Nurse] - () Prescriptions: Amoxicillin/Clavulanate [Augmentin] 875 mg PO BIDWM 5 Days Furosemide [Lasix] 20 mg PO BIDDIURETIC 7 Days
[2016-06-27] MEDS: Insulin LISPRO 300 UNITS/3 ML VIAL SQ SCH ×4 (09:13→21:31)
[2016-06-27] MEDS: Furosemide 20 MG TABLET PO SCH ×2 (09:25→16:58)
[2016-06-27] MEDS: Multivit/Ca/Min/Fe/FA 1 TAB TABLET PO SCH (09:25)
[2016-06-27] MEDS: Loratadine 10 MG TABLET PO SCH (09:26)
[2016-06-27] MEDS: Cholecalciferol (D-3) 1,000 UNIT TABLET PO SCH (09:26)
--- NOTE | 2016-06-27 10:27 | Internal Med Progress Note ---
<Jonah Lee - Last Filed: 06/27/16 11:56> Date of Encounter: 06/27/16 Time of Encounter: 10:27 - Assessment and plan (1) Cellulitis of left hand Current Visit: Yes Status: Acute Assessment and plan: On unasyn IV, swelling and erythema have improved, pain is better, con't current regimen, switch to PO upon discharge. (2) Acute renal failure superimposed on stage 4 chronic kidney disease Current Visit: No Status: Acute Assessment and plan: Slowly improving, nephro on board, likely 2/2 pre-renal from decreased effective arterial blood vol to his kidney from anemia and low albumin, third spacing with edematous extremities, con't high protein diet, avoid nephrotoxic agents, due to worsening b/l pedal edema, will increase lasix po dosage today. 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 (4) Anasarca associated with disorder of kidney Current Visit: No Status: Resolved Assessment and plan: Low albumin, third spacing, con't high protein diet. 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 (6) Diabetes mellitus Current Visit: No Status: Chronic Assessment and plan: Con't SSI, stopped glipizide. Qualifiers: Diabetes mellitus type: type 2 Diabetes mellitus complication status: with unspecified complications Diabetes mellitus [facility] insulin use: without middle or intermediate school principal use Qualified Code(s): E11.8 - Type 2 diabetes mellitus with unspecified complications (7) DVT prophylaxis Current Visit: Yes Status: Acute Assessment and plan: IPCs. - Subjective Interval history: Pt seen and examined, pt states his left hand swelling is better and pain is better, but worsening b/l pedal edema, nosebleed from NC use this AM but it stopped. - Constitutional Vitals: Temp Pulse Resp BP Pulse Ox 98.1 F 119 18 151/72 94 L 06/27/16 07:00 06/27/16 07:00 06/27/16 07:00 06/27/16 07:00 06/27/16 09:00 General appearance: Present: cooperative, A&O X 3, pleasant, no acute distress, answers questions appropriately - Head Head exam: Present: atraumatic, normocephalic - Eye Eye exam: Present: PERRL, conjuntiva pink, sclera anicteric Pupils: Present: PERRL - Neck Neck exam general surgery: Present: supple, trachea midline. Absent: lymphadenopathy - Respiratory Respiratory exam: Present: CTAB. Absent: accessory muscle use, rales, rhonchi, wheezes - Cardiovascular Cardiovascular exam: Present: RRR, +S1, +S2. Absent: diastolic murmur, gallop, rubs, systolic murmur - GI/Abdominal GI/Abdominal exam: Present: normal bowel sounds, soft, no peritoneal signs. Absent: distended, tenderness - Extremities Exam Extremities exam: Present: pedal edema (2+ moderate pitting b/l), warm, radial pulses palpable and symetrical. Absent: calf tenderness, cyanotic, normal inspection (left hand cellulitis improved significantly, less erthematous and edematous, no pain) - Neurological Exam Neurological exam: Present: CN II-XII intact, oriented X3, no focal deficits. Absent: pronater drift, facial droop, speech deficit - Skin Skin exam: Present: dry, intact Internal Medicine: Result - Labs CBC & Chem 7: 06/27/16 05:35 06/27/16 05:35 Labs: Short CBC 06/27/16 Range/Units 05:35 WBC 2.7 L (4.3-11.1) K/mcL Hgb 7.6 L (12.9-16.9) g/dL Hct 23.9 L (37.5-50.1) % Plt Count 19 L* (140-400) K/mcL Neutrophils # 0.4 L (1.6-8.9) K/mcL BMP 06/27/16 05:35 Sodium 145 Potassium 4.6 H Chloride 113 H Carbon Dioxide 24 BUN 67 H Creatinine 1.86 H Glucose 125 H Calcium 9.1 - VTE Reasons for not Prescribing Prophylaxis: Medical contraindication Consult Discharge Plan - Plan Referrals: NO,PCP [Primary Care Provider] - <Kameron Paez - Last Filed: 06/27/16 17:24> - Assessment and plan (1) Cellulitis of left hand Current Visit: Yes Status: Acute (2) Pancytopenia Current Visit: Yes Status: Acute (3) Atrial fibrillation Current Visit: No Status: Chronic Qualifiers: Atrial fibrillation type: paroxysmal Qualified Code(s): I48.0 - Paroxysmal atrial fibrillation (4) Marginal zone lymphoma, 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 (5) Obesity (BMI 30-39.9) Current Visit: No Status: Chronic - Constitutional Vitals: Temp Pulse Resp BP Pulse Ox 97.7 F 116 16 113/63 93 L 06/27/16 16:00 06/27/16 16:00 06/27/16 16:00 06/27/16 16:00 06/27/16 16:00 Internal Medicine: Result - Labs CBC & Chem 7: 06/27/16 05:35 06/27/16 05:35 Labs: Short CBC 06/27/16 Range/Units 05:35 WBC 2.7 L (4.3-11.1) K/mcL Hgb 7.6 L (12.9-16.9) g/dL Hct 23.9 L (37.5-50.1) % Plt Count 19 L* (140-400) K/mcL Neutrophils # 0.4 L (1.6-8.9) K/mcL BMP 06/27/16 05:35 Sodium 145 Potassium 4.6 H Chloride 113 H Carbon Dioxide 24 BUN 67 H Creatinine 1.86 H Glucose 125 H Calcium 9.1 - Impressions Impressions Bone Marrow Biopsy w/ CT 06/27/16 00:00 IMPRESSION: Successful CT guided bone marrow aspiration and core biopsy of the iliac bone. D/ / Silas Hernandez MD / Silas Hernandez MD Interpreting Provider: Silas Hernandez MD - Attending Attestation I examined this patient and my medical decision-making was reviewed with the Resident Physician on 06/27/16. I agree with the documented findings, disposition and treatment plan as described except to the extent set forth below. Mr. Calderon is currently admitted for acute cellulitis of the L hand and pancytopenia with the concern for acute AML. He remains high risk due to the need for IV abx and the potential for acute issues with his pancytopenia. Mr. Calderon is tired today. His platelets remain 19K. He denies CP or SOB. He feels his hand is improving and at this time he is awaiting bone marrow biopsy. His is at the bedside and was able to relay to me the conversation with Dr. Brothers this AM. Exam Alert. Fatigued. Heart reg - not tachy Lungs clear Abd soft Edema noted bilateral lower extremities - worse on feet below wraps with some petechial changes on the skin. L hand continues to slowly improve. Labs reviewed I/P 1. Cellulitis - improving 2. 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
--- NOTE | 2016-06-27 15:23 | Pre-Sedation Evaluation ---
Pre-sedation evaluation - Pre-sedation checklist Date of procedure: 06/27/16 Procedure: BMBx Recent Vitals: Last Vital Signs Temp 98.1 F 06/27/16 07:00 Pulse 107 06/27/16 11:00 Resp 16 06/27/16 11:00 BP 125/77 06/27/16 11:00 Pulse Ox 93 L 06/27/16 11:00 H&P (including ROS) documented in medical record: Yes Previous reaction to sedatives/anesthetics: No Dietary Status: NPO after Midnight Dentition: full dentition, dentures removed ASA Classification *see protocol: CLASS II-Mild systemic disease Plan of Care: Pt appropriate candidate for procedure/moderate/conscious sedation , Risks/benefits of procedure/sedation discussed w/ patient/family, If not NPO; Risk of intake outweiged by necessity to perform procedure
[2016-06-27] MEDS ORDERED: 0.9 % Sodium Chloride 500 ML ONE (15:25)
[2016-06-27] MEDS: *HR* FentaNYL (PF) 100 MCG/2 ML VIAL IV PRN ×2 (15:37→15:42)
--- NOTE | 2016-06-27 15:59 | IR Procedure Note ---
Date of procedure: 06/27/16 Consent Obtained: Verbal consent, Written consent Timeout: Correct patient and procedure verified, Correct site verified, Time out performed, Skin prep completed Local anesthetic: Lidocaine 1% Indications: anemia Procedure Performed: bone marrow bx Site/Technique: R iliac bone Results/Findings: no marrow was able to be aspirated, core bx was obtained however Estimated blood loss (cc): 2 Complications: None; Tolerated procedure well Post Procedure Treatment Plan: bedrest x 1 hour
[2016-06-27] MEDS: *HR* HYDROcodone/Acet 10/325 mg TABLET PO PRN (21:28)
[2016-06-28] MEDS: Ampicillin/Sulbactam 1,500 MG in 0.9 % Sodium Chloride Mini Bag 100 ML IVPB SCH (05:56)
[2016-06-28 06:01] LABS: Hematocrit 25.3 % (37.5-50.1); Hemoglobin 8.1 g/dL (12.9-16.9); Immature Granulocytes % 1.8 % (0-4); Immature Platelets 11.4 % (1.1-6.1); Lymphocytes # 0.7 K/mcL (0.6-4.6); Lymphocytes % 21.1 %; Mean Corpuscular Hemoglobin 29.1 pg (28.0-33.3); Mean Platelet Volume 13.4 fL (9.4-12.4); Monocytes # 2.2 K/mcL (0.0-1.3); Monocytes % 67.1 %; Neutrophils # 0.3 K/mcL (1.6-8.9); Red Blood Count 2.78 M/mcL (4.19-5.50); Red Cell Distribution Width 15.3 % (11.5-14.5)
[2016-06-28 06:09] LABS: Calcium 9.3 mg/dL (8.6-10.8); Potassium 4.5 mEq/L (3.5-4.5)
[2016-06-28 06:25] LABS: Platelet Count 27 K/mcL (140-400)
[2016-06-28 06:55] LABS: Platelet Estimate Marked Decrease (Normal); Reactive Lymphocytes Present (Not Present); Toxic Granulation Present (Not Present)
[2016-06-28 07:35] VITALS: BP 132/65
--- NOTE | 2016-06-28 08:27 | Discharge Summary ---
<Jonah Lee - Last Filed: 06/28/16 14:19> Date of Encounter: 06/28/16 Time of Encounter: 08:27 - Discharge Diagnosis (1) Cellulitis of left hand Priority: Primary Status: Acute (2) Acute renal failure superimposed on stage 4 chronic kidney disease Priority: Secondary Status: Acute (3) Marginal zone lymphoma, spleen Priority: Secondary Status: Chronic (4) Anasarca associated with disorder of kidney Priority: Secondary Status: Resolved (5) Antineoplastic chemotherapy induced pancytopenia Priority: Secondary Status: Chronic (6) Diabetes mellitus Priority: Secondary Status: Chronic Qualifiers: Diabetes mellitus type: type 2 Diabetes mellitus complication status: with unspecified complications 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 mellitus computer terminal operator insulin use: without group home use Qualified Code(s): E11.8 - Type 2 diabetes mellitus with unspecified complications; N18.4 - Chronic kidney disease, stage 4 (severe) (7) DVT prophylaxis Priority: Secondary Status: Acute - Discharge Medications Prescriptions: Amoxicillin/Clavulanate [Augmentin] 875 mg PO BIDWM 5 Days Furosemide [Lasix] 20 mg PO BIDDIURETIC 7 Days Home Medications: Aspirin 81 mg PO DAILY 01/13/15 [History] Atenolol [Tenormin] 50 mg PO BID 01/13/15 [History] Cholecalciferol (D-3) 2,000 units PO DAILY 01/13/15 [History] Febuxostat [Uloric] 80 mg PO DAILY 01/13/15 [History] GlipiZIDE [Glucotrol] 5 mg PO BID 01/13/15 [History] Lisinopril [Zestril] 20 mg PO DAILY 01/13/15 [History] Loratadine [Alavert] 10 mg PO DAILY 01/13/15 [History] Multivitamin [Multivitamins] 1 cap PO DAILY 01/13/15 [History] [place]-3 Fatty Acids [Fish Oil] 1,200 mg PO DAILY 01/13/15 [History] Rosuvastatin Calcium [Crestor] 10 mg PO DAILY 01/13/15 [History] Aminocaproic Acid [Amicar] 1,000 mg PO Q6H #120 tablet 06/15/16 [Rx] Omeprazole [PriLOSEC] 40 mg PO DAILY #30 cap 06/15/16 [Rx] Diclofenac Sodium [Voltaren] 1 appl TP QID PRN 06/22/16 [History] Amoxicillin/Clavulanate [Augmentin] 875 mg PO BIDWM 5 Days 06/28/16 [Rx] Furosemide [Lasix] 20 mg PO BIDDIURETIC 7 Days 06/28/16 [Rx] Allergies/Adverse Reactions: Allergies No Known Allergies Allergy (Verified 01/20/15 10:11) Procedures/tests Complete & Pending: Procedures Performed prior 72 hours Category Date Time Status CT guided biopsy [CT] Routine Cat Scan 06/27/[address] biopsy bone marrow [CT] Routine Exams 06/27/16 Completed Date of admission: 06/22/16 22:13 Primary care physician: PCP NO Consults: 06/22/16 22:30 Consult to Power Reactor Supervisor [CONS] Routine Reason for SW Consult: DISCHARGE PLANNING 06/23/16 06:02 Consult to Pastoral Services [CONS] Routine Comment: Consult to Power Reactor Supervisor [CONS] Routine Reason for Consult: Came from [facility] 06/23/16 06:21 Consult to Nephrology [CONS] Routine Consulting Provider: Kidney Spclst [facility] JERRY/WALDO Reason for Consult: acute on chronic kidney disease Call Completed: No Consult to Palliative Care [CONS] Routine Comment: Consulting Provider: [facility] [place] 06/24/16 10:32 Consult to Oncology [CONS] Routine Consulting Provider: [facility] [place] Reason for Consult: Hx of marginal zone lymmphoma. Admitted for JOSE on CKD. Pancytopenic. Hgb 6.9, WBC 1.7, Plt 14. Call Completed: Yes Discharging clinician: Jonah Lee Anticipated date of discharge: 06/28/16 - Patient Status Disposition: Home, Self-Care Condition: Fair Functional capacity at discharge: uses cane/walker (fall precaution) Overall status at discharge: patient is progressing back to baseline - Discharge Instructions Instructions: Furosemide (By mouth), Amoxicillin/Clavulanate Potassium (By mouth), Heart Failure (DC), Atrial Fibrillation (DC), Diabetes Mellitus Type 2 in Adults (DC), Bone Marrow Failure in Children (GEN), Chronic Hypertension (DC) , Anemia (GEN), Pneumonia (DC) Follow Up With: Neda Falcon MD [Partnered Physician] - 07/04/16 1:30 pm (F/u with pt' s primary oncologist for bone marrow biopsy result and f/u on lymphoma) Edmond Kiser, SHIRT TRIMMER [Advanced Practice Nurse] - () - Diet and Activity Activity: resume usual activities as tolerated Diet: diabetic diet, low fat, low cholesterol, low salt diet Hospital course: Mr. Calderon is a 80 year old male with hx of splenic marginal zone lymphoma who came in for left hand cellulitis, started unasyn IV, lab showed panyctopenia, he has been seeing dr. Falcon at [facility] for lymphoma and workup for pancytopenia, there was a concern for possible underlying AML therefore bone biopsy was done yesterday. Pt also came in with acute on CKD III, it was likely due to pre-renal from decreased effective arterial blood vol to his kidney from anemia and low albumin, third spacing with edematous extremities, therefore we started him on high protein diet, avoided nephrotoxic agents, when his renal function started to improve we put him back on lasix PO higer dosage than home dose for worsening b/l pedal edema. He received 1 unit of PRBC and platelet each and his pancytopenia stabilized after that, therefore he will be d /c to rehab today in stable condition with po augmentin. - Time Spent with Patient Total time spent providing and/or coordinating discharge services: - Constitutional Vitals: Temp Pulse Resp BP Pulse Ox 97.8 F 93 16 132/65 97 06/28/16 07:00 06/28/16 07:00 06/28/16 07:00 06/28/16 07:00 06/28/16 07:00 General appearance: Present: cooperative, A&O X 3, pleasant, no acute distress, answers questions appropriately - Head Head exam: Present: atraumatic, normocephalic - Eye Eye exam: Present: PERRL, conjuntiva pink, sclera anicteric Pupils: Present: PERRL - Neck Neck exam general surgery: Present: supple, trachea midline. Absent: lymphadenopathy - Respiratory Respiratory exam: Present: CTAB. Absent: accessory muscle use, rales, rhonchi, wheezes - Cardiovascular Cardiovascular exam: Present: RRR, +S1, +S2. Absent: diastolic murmur, gallop, rubs, systolic murmur - GI/Abdominal GI/Abdominal exam: Present: normal bowel sounds, soft, no peritoneal signs. Absent: distended, tenderness - Extremities Exam Extremities exam: Present: pedal edema (improved moderate b/l 2+ pitting), warm , radial pulses palpable and symetrical. Absent: calf tenderness, cyanotic, normal inspection (left hand cellulitis improved) - Neurological Exam Neurological exam: Present: CN II-XII intact, oriented X3, no focal deficits. Absent: pronater drift, facial droop, speech deficit - Skin Skin exam: Present: dry, intact - VTE Reasons for not Prescribing Prophylaxis: Medical contraindication Documentation of Mechanical Device: Intermittent pneumatic compression device <Kameron Paez - Last Filed: 06/28/16 17:16> - Discharge Diagnosis (1) Cellulitis of left hand Priority: Primary Status: Acute (2) Pancytopenia Priority: Primary Status: Acute (3) Atrial fibrillation Priority: Secondary Status: Chronic Qualifiers: Atrial fibrillation type: paroxysmal Qualified Code(s): I48.0 - Paroxysmal atrial fibrillation (4) Marginal zone lymphoma, spleen Status: Chronic (5) Obesity (BMI 30-39.9) Priority: Secondary Status: Chronic (6) Diabetes mellitus Status: Chronic Qualifiers: Diabetes mellitus type: type 2 Diabetes mellitus complication status: with kidney complications Diabetes mellitus complication detail: with chronic kidney disease Diabetes mellitus group home insulin use: without group home use Chronic kidney disease stage: stage 4 (severe) Qualified Code(s): E11.22 - Type 2 diabetes mellitus with diabetic chronic kidney disease; N18.4 - Chronic kidney disease, stage 4 (severe) (7) Hypertension Priority: Secondary Status: Chronic Qualifiers: Hypertension type: essential hypertension Qualified Code(s): I10 - Essential (primary) hypertension (8) Peripheral neuropathy Priority: Secondary Status: Chronic Qualifiers: Peripheral neuropathy type: polyneuropathy associated with underlying disease Qualified Code(s): G63 - Polyneuropathy in diseases classified elsewhere Procedures/tests Complete & Pending: Procedures Performed prior 72 hours Category Date Time Status CT guided biopsy [CT] Routine Cat Scan 06/27/[address] biopsy bone marrow [CT] Routine Exams 06/27/16 Completed Date of admission: 06/22/16 22:13 Primary care physician: PCP NO Consults: 06/22/16 22:30 Consult to Power Reactor Supervisor [CONS] Routine Reason for SW Consult: DISCHARGE PLANNING 06/23/16 06:02 Consult to Pastoral Services [CONS] Routine Comment: Consult to Power Reactor Supervisor [CONS] Routine Reason for SW Consult: Came from [place] [facility] 06/23/16 06:21 Consult to Nephrology [CONS] Routine Consulting Provider: Kidney Spclst Drea EDWARDS/WALDO Reason for Consult: acute on chronic kidney disease Call Completed: No Consult to Palliative Care [CONS] Routine Comment: Consulting Provider: [facility] [place] 06/24/16 10:32 Consult to Oncology [CONS] Routine Consulting Provider: [facility] [place] Reason for Consult: Hx of marginal zone lymmphoma. Admitted for JOSE on CKD. Pancytopenic. Hgb 6.9, WBC 1.7, Plt 14. Call Completed: Yes 06/28/16 14:18 Consult to Physical Therapy [CONS] Stat Comment: Evaluate, develop and implement POC OT [Consult to Occupational Therapy] [CONS] Stat Comment: Evaluate, develop and implement POC Hospital course: Mr. Calderon is a 80 year old male - Time Spent with Patient Total time spent providing and/or coordinating discharge services: 41min - Constitutional Vitals: Temp Pulse Resp BP Pulse Ox 97.8 F 93 16 132/65 97 06/28/16 08:00 06/28/16 08:00 06/28/16 08:00 06/28/16 08:00 06/28/16 08:00 - Attending Attestation I examined this patient and my medical decision-making was reviewed with the Resident Physician on 06/28/16. I agree with the documented findings, disposition and treatment plan as described except to the extent set forth below. Mr. Calderon was very upset last night. His was not brought up to room till over an hour after he returned. He is having some pain in the bone marrow site. Tired today as well. No CP or SOB. Edema about the same. Exam Alert. Comfortable at rest. Mucus membranes dry Heart reg now Lungs clear now Edema about the same today I/P 1. 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 Cellulitis slowly improving on abx 3. Edema on Lasix Further diagnoses and plan as above. Planning on discharge to [place] - most likely tomorrow when arranged.
[2016-06-28] MEDS: Insulin LISPRO 300 UNITS/3 ML VIAL SQ SCH ×2 (08:29→11:33)
[2016-06-28] MEDS: Cholecalciferol (D-3) 1,000 UNIT TABLET PO SCH (08:30)
[2016-06-28] MEDS: Multivit/Ca/Min/Fe/FA 1 TAB TABLET PO SCH (08:30)
[2016-06-28] MEDS: Loratadine 10 MG TABLET PO SCH (08:30)
[2016-06-28] MEDS: Furosemide 20 MG TABLET PO SCH (08:30)
[2016-06-28] MEDS: *HR* HYDROcodone/Acet 10/325 mg TABLET PO PRN (10:01)
--- NOTE | 2016-06-28 11:26 | Physician Discharge Referral ---
ExtendedCare Referral Info Transfer To: ECF Provider in Charge: Dr. Paez Provider in Charge after Transfer: PCP Institutional Level of Care: Skilled - Diagnosis (1) Cellulitis of left hand Priority: Primary Status: Acute (2) Acute renal failure superimposed on stage 4 chronic kidney disease Status: Acute (3) Marginal zone lymphoma, spleen Status: Chronic (4) Anasarca associated with disorder of kidney Status: Resolved (5) Antineoplastic chemotherapy induced pancytopenia Status: Chronic (6) Diabetes mellitus Status: Chronic (7) DVT prophylaxis Status: Acute - Transfer Medications Prescriptions: Amoxicillin/Clavulanate [Augmentin] 875 mg PO BIDWM 5 Days Furosemide [Lasix] 20 mg PO BIDDIURETIC 7 Days Home Medications: Aspirin 81 mg PO DAILY 01/13/15 [History] Atenolol [Tenormin] 50 mg PO BID 01/13/15 [History] Cholecalciferol (D-3) 2,000 units PO DAILY 01/13/15 [History] Febuxostat [Uloric] 80 mg PO DAILY 01/13/15 [History] GlipiZIDE [Glucotrol] 5 mg PO BID 01/13/15 [History] Lisinopril [Zestril] 20 mg PO DAILY 01/13/15 [History] Loratadine [Alavert] 10 mg PO DAILY 01/13/15 [History] Multivitamin [Multivitamins] 1 cap PO DAILY 01/13/15 [History] [place]-3 Fatty Acids [Fish Oil] 1,200 mg PO DAILY 01/13/15 [History] Rosuvastatin Calcium [Crestor] 10 mg PO DAILY 01/13/15 [History] Aminocaproic Acid [Amicar] 1,000 mg PO Q6H #120 tablet 06/15/16 [Rx] Omeprazole [PriLOSEC] 40 mg PO DAILY #30 cap 06/15/16 [Rx] Diclofenac Sodium [Voltaren] 1 appl TP QID PRN 06/22/16 [History] Amoxicillin/Clavulanate [Augmentin] 875 mg PO BIDWM 5 Days 06/28/16 [Rx] Furosemide [Lasix] 20 mg PO BIDDIURETIC 7 Days 06/28/16 [Rx] Allergies/Adverse Reactions: Allergies No Known Allergies Allergy (Verified 01/20/15 10:11) - Respiratory Orders Oxygen / L per min, None Smoking Cessation: Smoking cessation has been advised. For more information, call the [place] Tobacco Quit Line at 4-671-GOIX-NOW. - Ancillary Orders May use pressure relief devices daily prn, May go on YADIRA w/family/respon democrat w /meds at nurse discretion PRN, May consult with Dentist, Fund Accountant, Family Services Manager PRN - Advance Directives Code Status: DNR-Arrest/Don't Intubate - Mobility Orders Ambulate (fall precaution) - Rehabiliation Orders Rehab Potential: Fair Rehab Orders: ROM Exercises, Evaluation for Physical Therapy, Evaluation for Occupational Therapy - Treatments Skin tear care topically daily PRN per policy, May check for fecal impaction rectally daily PRN, Fleet enema rectally every other day PRN cleansing purposes - Diet Orders No Added Salt (FRANCISCO), Renal CERTIFICATION: I certify that the transfer of the above named patient to an Extended Care Facility is necessary for the continuing treatment of the diagnosis listed. The above information is true and accurate reflection of patient's current condition. Confidential - Redisclosure prohibited without a patient's written consent.
== END 2016-06-28 17:32 | DRG 808 ==
LOC: 2NENU → SUATTDRO 22:13
PROVIDERS: ADMIT Internal Medicine; ATTEND Internal Medicine

== ENCOUNTER 2016-07-17 15:37 | Inpatient (IN) ==
[2016-07-17] MEDS ORDERED: Bisacodyl 10 MG RECTAL SUPPOSITORY RC PRN (16:02)
[2016-07-17] MEDS ORDERED: Haloperidol Oral Conc 10 MG/5 ML UDC PO PRN ×2 (16:06→16:10)
[2016-07-17] MEDS ORDERED: Furosemide 20 MG TABLET PO PRN (16:09)
[2016-07-17] MEDS ORDERED: Morphine Oral CONC 5 MG/0.25 ML ORAL.SYG PO PRN (16:14)
[2016-07-17] MEDS ORDERED: *HR* GlipiZIDE 5 MG TABLET PO SCH (17:00)
[2016-07-17 19:18] VITALS: BP 113/74
[2016-07-17] MEDS: Morphine Oral CONC 5 MG/0.25 ML ORAL.SYG PO PRN ×3 (21:17→23:24)
[2016-07-17] MEDS: *HR* LORazepam Oral Conc 2 MG/ML PO PRN (21:18)
[2016-07-18] MEDS: Morphine Oral CONC 5 MG/0.25 ML ORAL.SYG PO PRN ×3 (01:32→05:28)
[2016-07-18] MEDS: *HR* LORazepam Oral Conc 2 MG/ML PO PRN (03:57)
[2016-07-18] MEDS ORDERED: Atropine Sulfate 300 DROP/15 ML BOTTLE SL PRN (05:12)
[2016-07-18] MEDS ORDERED: amLODIPine 5 MG TABLET PO SCH (09:00)
[2016-07-18] MEDS ORDERED: Lisinopril 20 MG TABLET PO SCH (09:00)
--- NOTE | 2016-07-18 11:29 | Pallative History & Physical ---
Date of Encounter: 07/18/16 Time of Encounter: 07:00 Assessment and Plan (1) Delirium Status: Acute Patient admitted for symptom control of terminal delirium. The patient passed prior to being seen but apparently passed comfortably Internal Medicine - H&P: HPI Admitted From: Direct Admit Plans for Post Hospital Care: at Medical Facility History of present illness: Mr. Calderon is a 80 year old male The patient had a history of malignancy, with pancytopenia as well as congestive heart failure and heart disease. What it had been having increasing problems at home with home hospice in terms of terminal delirium and was brought to the hospital semi-emergently for Gen. inpatient control of his terminal delirium. Medications were administered while the patient was GI P, and his symptoms were controlled. Patient passed this morning prior to my being able to see him. Therefore there is no physical exam. Details of physical can be found with hospice records. Past Med Surg Social Fam HX - Past Medical History Medical history: arthritis, atrial fibrillation, cancer, cardiomyopathy, CHF, coronary artery disease, diabetes, GERD, hyperlipidemia, hypertension, malignancy, osteoporosis, peripheral artery disease, renal disease, other Psychiatric history: no psych history - Past Surgical History Surgical History: arthroscopy, cancer surgery, cataract, cholecystectomy, coronary bypass (CABG), knee replacement, orthopedic, other, other - Social History Smoking Status: Former smoker Smokeless Tobacco Status: No Alcohol use: none Drug use: none - Family History Mother History Unknown: Yes Hx Family Cardiac Disorders: Yes (Congestive heart failure) Hx Family Cancer: Yes (Details unknown) Hx Family GI Disorders: Yes Hx Family Endocrine Disorder: Yes (Diabetic) Internal Medicine - H&P: Meds Aspirin 81 mg PO DAILY 01/13/15 [History] Atenolol [Tenormin] 50 mg PO BID 01/13/15 [History] Cholecalciferol (D-3) 2,000 units PO DAILY 01/13/15 [History] Febuxostat [Uloric] 80 mg PO DAILY 01/13/15 [History] GlipiZIDE [Glucotrol] 5 mg PO BID 01/13/15 [History] Lisinopril [Zestril] 20 mg PO DAILY 01/13/15 [History] Loratadine [Alavert] 10 mg PO DAILY 01/13/15 [History] Multivitamin [Multivitamins] 1 cap PO DAILY 01/13/15 [History] [place]-3 Fatty Acids [Fish Oil] 1,200 mg PO DAILY 01/13/15 [History] Rosuvastatin Calcium [Crestor] 10 mg PO DAILY 01/13/15 [History] Aminocaproic Acid [Amicar] 1,000 mg PO Q6H #120 tablet 06/15/16 [Rx] Omeprazole [PriLOSEC] 40 mg PO DAILY #30 cap 06/15/16 [Rx] Diclofenac Sodium [Voltaren] 1 appl TP QID PRN 06/22/16 [History] Amoxicillin/Clavulanate [Augmentin] 875 mg PO BIDWM 5 Days 06/28/16 [Rx] Furosemide [Lasix] 20 mg PO BIDDIURETIC 7 Days 06/28/16 [Rx] Allergies No Known Allergies Allergy (Verified 01/20/15 10:11) Palliative Care-Exam - Constitutional Vitals: Temp Pulse Resp BP Pulse Ox 97.8 F 78 14 113/74 100 07/17/16 18:58 07/17/16 18:58 07/17/16 18:58 07/17/16 18:58 07/17/16 18:58 General appearance: Present: severe distress (Patient prior to being seen.) Palliative Quality Palliative Quality: Screen for Code Status: NA (Patient prior to being seen.), Screen for Goals of Care: NA, Screen for Pain: NA, If Pain Regimen Started, Initiate Bowel Regimen: NA, Screen for Nausea/Vomitting: NA Code Status: 07/17/16 16:02 Resuscitation Status: Active [RES] Routine Comment: Resuscitation Status: DNR-Comfort Care
--- NOTE | 2016-07-18 11:36 | Death Note ---
Discharge Sum: Summary - Date and Time Date of admission: 07/17/16 18:47 Date of : 07/18/16 Time of : 06:20 - Summary Details: The patient came in with symptoms of terminal delirium. Hospice was unable to control the symptoms at home and it was felt the patient would be better served as Gen. inpatient. She was subsequently admitted to the general inpatient hospice service medications for given and patient was able to be calmed down. Passed quietly and comfortably with family at bedside 0620 hrs. this morning 07/18 Patient of respiratory failure probably secondary to pancytopenia specifically anemia. Comorbidities were arthritis, atrial fibrillation, latency probably blood-borne or nerve disease and peripheral artery disease as well as congestive heart failure. Unknown if patient ever smoked. - Additional Data Confirmation of as documented by pronouncing clinician: no pulse, no respirations, no heart sounds Family: at bedside Attending/PCP notified?: Yes Attending physician: David Levine MD Was code activated?: No Autopsy requested?: No cigarette making examiner notified?: No Organ bank notified?: Yes Advance directives: Yes Hospice patient?: Yes Discharge Sum: Diag - PCOD Probable Cause of : Respiratory arrest Discharge Sum: Prov - Provider Primary care physician: Edmond Kiser CNP Consults: 07/17/16 16:02 Consult to Palliative Care [CONS] Routine Comment: Consulting Provider: Palliative Care [facility]
== END 2016-07-18 08:15 | disposition expired | DRG 808 ==
LOC: 2ANU 18:47
PROVIDERS: ADMIT Clinical Nurse Specialist Adult Health; ATTEND Family Medicine Hospice and Palliative Medicine